=== PATIENT | female | born 1990 | race Caucasian/White ===

== ENCOUNTER 2020-08-04 16:16 | Emergency (ER) | payer MEDICARE, MEDICAID, SELFPAY ==
[2020-08-04 16:35] VITALS: BP 119/89; PULSE 90; RESP 20; TEMP 37; O2SAT 97; BMI 30.9
--- NOTE | 2020-08-04 16:46 | ED.FEMALEGU ---
HPI - Female Genitourinary General Chief complaint: Vaginal Bleeding Stated complaint: Vaginal Bleeding Time Seen by Provider: 08/04/20 16:18 Source: patient Mode of arrival: ambulatory Limitations: no limitations History of Present Illness HPI Narrative: 30-year-old female who presents emergency department for evaluation of vaginal bleeding and vaginal discharge. The patient states that her last menstrual period was 07/27/2020 and lasted 3 days. This was not expected. Her. She states that over the past 4-5 days she has noticed a dark vaginal discharge and bloody discharge. She has been using tissue paper and she soaks through the tissue paper she has not had to use tampons or pads. She states that she is having severe, 10/10, constant, cramping, suprapubic pain which has a sharp component to it as well. She denies frequency, urgency, dysuria, fever, chills, nausea or vomiting. She is sexually active and she states that she has 3 new sexual partners that she has had intercourse with over the past 2 weeks. The patient does not believe she is but has not taken a home test. MD elicited complaint: vaginal bleeding (4-5 days) and vaginal discharge (Dark, malodorous) Location of symptoms: suprapubic (Cramping) Severity: severe Severity scale (1-10): 10 Quality of pain: sharp and other (Cramping) Consistency: constant Vaginal discharge: vaginal odor Vaginal bleeding: moderate Exacerbating factors: none Relieving factors: menstrual period (Last menstrual period 07/27/2020) Associated symptoms: abdominal pain Treatment prior to arrival: none Sexual activity: Yes and New Sexual Partners (Three new sexual partner) Patient : No Possible : unsure if Date of Last Menstrual Period: 07/27/20 Related Data : 3 Para: 3 Home Medications Medication Instructions Recorded Confirmed No Known Home Meds 08/04/20 08/04/20 Allergies Allergy/AdvReac Type Severity Reaction Status Date / Time No Known Allergies Allergy Unverified 05/13/20 15:55 [No Known Allergies*] Review of Systems Review of Systems: Yes all other systems are reviewed and are negative Constitutional: Constitutional: Reports as per HPI Eyes: Eyes: Reports as per HPI ENT: Reports as per HPI Cardiovascular: Cardiovascular: Reports as per HPI Respiratory: Respiratory: Reports as per HPI Gastrointestinal: Gastrointestinal: Reports as per HPI Genitourinary: Genitourinary: Reports as per HPI Musculoskeletal: Musculoskeletal: Reports as per HPI Integumentary/Breasts: Skin/Breast: Reports as per HPI Neurologic: Reports as per HPI and Reports Abnormal speech present Psychiatric: Psychiatric: Reports as per HPI Allergic/Immunologic: Allergic/Immunologic: Reports as per HPI PMFSH Past Medical History [facility] Narrative: The patient does smoke cigarettes. She states that she does drink alcohol and states that she is an alcoholic. She drinks at least 2 beers per day and 1-2 shots per day. She denies drug use. Medical History EtOH dependence : 3 Para: 3 Date of Last Menstrual Period: 07/27/20 Social History Social History Alcohol intake: current Alcohol type: hard liquor Smoked in Last 30 Days: No Use of substances other than those prescribed or required for medical reasons: Unknown Advance Directives: No Advance Directives Information Provided: No Physical Exam Vital Signs: Vital Signs: Last Vital Signs Temp 98.6 F 08/04/20 16:35 Pulse 90 08/04/20 16:35 Resp 20 08/04/20 16:35 BP 119/89 08/04/20 16:35 Pulse Ox 97 08/04/20 16:35 Body Mass Index 30.9 Const: General: cooperative, no acute distress, alert and awake Orientation/consciousness: oriented to person and oriented to place Limitations: no limitations HENMT: Head: Yes normal to inspection, Yes normocephalic and Yes atraumatic Ears: external ears normal General nose exam: Normal external nose present Face and sinus: Yes normal facial exam Mouth: Normal oral and palatal mucosa present Throat: Yes posterior oropharynx normal Eyes: General: appearance normal, both eyes and all related structures Periorbital: periorbital findings normal Eyelids: Yes eyelids normal Conjunctivae: conjunctivae normal Sclerae: sclerae normal Corneas: corneas normal Pupils: Equal, round and reactive pupils present Direct Ophthalmoscopy: normal light reflex Neck: Neck: Yes normal visual inspection and Yes supple Lymphatic: no lymphadenopathy noted Chest: Chest palpation & inspection: normal inspection of the chest and normal palpation of entire chest wall Resp: Effort & Inspection: normal respiratory effort, abnormal respiratory pattern, no audible wheezes and no respiratory distress Auscultation: clear to auscultation bilaterally, no crackles, no rales, no rhonchi and no wheezes Cardio: Rate: regular rate Rhythm: regular rhythm Heart sounds: S1 normal heart sound present, S2 normal heart sound present and no murmurs GI: Inspection: No distended Palpation (GI): Soft to palpation, Tenderness to palpation present (GI) suprapubicly (Moderate), no guarding and No hepatosplenomegaly present Auscultation: normal bowel sounds : General: Yes no CVA tenderness Back/Spine/Pelvis: Back: no CVA tenderness Skin: General skin exam: no rashes or lesions noted Lesions: no lesions Rashes: no rashes Wounds: no wounds Neuro: General: oriented to person and oriented to place Cranial nerves: Yes CN's II-XII intact bilaterally and Yes Equal, round and reactive pupils present Cognition (Neuro): normal cognition Speech: Abnormal speech present Motor exam (neuro): 5/5 motor strength present throughout Extrem: General: Yes normal to inspection, Yes full ROM, Yes no pedal edema and Yes no calf tenderness Psych: Appearance: grossly normal Mental Status: mental status grossly normal Speech and movement: Clear speech present Affect: normal affect Thought process: Normal thought process present Course Course Course Narrative: 30-year-old female who presented to the emergency department for evaluation of vaginal bleeding/discharge who was found to have a positive urine test. The patient's examination did reveal that her cervical os is slightly open with blood coming from the cervix. There was only mild amount of blood in the patient's vagina and cervix and it was swabbed away with 4 large Q-tips. The patient did have some tenderness with palpation over her uterus and adnexa bilaterally. The patient's laboratory evaluation revealed a normal CBC. The patient's blood type is B-positive she does not need RhoGAM. The patient's quantitative beta-hCG was 571. I ordered a pelvic ultrasound to rule out ectopic versus missed AB. 7:20 p.m.: The patient does not want to wait for her ultrasound. I have explained to her multiple times that I am concerned that she is having and that we need to do a ultrasound also to make sure she does not have an ectopic but she wants to leave against medical advice. She is advised to follow-up with her public transit bus driver and return to the emergency department if her symptoms get worse or if she changes her mind and wants to have a complete workup. MDM - Female Genitourinary Lab Data Result diagrams: 08/04/20 17:52 08/04/20 17:52 Labs: Lab Results 08/04/20 08/04/20 08/04/20 Range/Units 17:00 17:52 17:52 WBC (4.8-10.8) X10*3/uL RBC (4.20-5.50) X10*6/uL Hgb (12.0-16.0) g/dl Hct (37-47) % MCV (80-98) fL MCH (27.0-33.0) pg MCHC (31.0-35.0) g/dl RDW (11.0-16.0) % Plt Count (160-400) X10*3/uL MPV (9.4-12.3) fL Immature Gran % (Auto) (0.0-0.4) % Neut % (Auto) (45-73) % Lymph % (Auto) (20-40) % Woodward % (Auto) (2-11) % Eos % (Auto) (0-4) % Baso % (Auto) (0-2) % Lymph # (Auto) (1.2-4.9) X10*3/uL Woodward # (Auto) (0.1-1.2) X10*3/uL Eos # (Auto) (0.0-0.4) X10*3/uL Baso # (Auto) (0.0-0.2) X10*3/uL Abs Immat Gran (auto) (0.00-0.03) X10*3/uL Absolute Neuts (auto) (2.0-8.3) X10*3/uL Absolute Nucleated RBC (0.0-0.012) X10*3/uL Nucleated RBC % (auto) (0.0-0.2) /100WBC Sodium (135-145) mmol/L Potassium (3.3-5.1) mmol/l Chloride (96-108) mmol/L Carbon Dioxide (22-29) mmol/L Anion Gap (12-20) BUN (9-16) mg/dL Creatinine (0.5-1.4) mg/dL Estim Creat Clear Calc Estimated GFR Fasting Glucose (60-99) mg/dL Calcium (8.4-10.2) mg/dL Total Bilirubin (0.0-1.0) mg/dL AST (5-31) U/L ALT (0-31) U/L Alkaline Phosphatase (39-117) U/L Total Protein (6.5-8.0) g/dL Albumin (3.5-5.0) g/dL Beta HCG, Quant 571 mIU/mL Urine Color DARK YELLOW Urine Appearance HAZY Urine pH 6.0 (5.0-8.0) Ur Specific Monroe 1.025 (1.005-1.025) Urine Protein 2+ H (NEG-TRACE) MG/DL Urine Glucose (UA) NEG (NEG) MG/DL Urine Ketones NEG (NEG) MG/DL Urine Blood 3+ H (NEG) Urine Nitrite POS H (NEG) Ur Leukocyte Esterase NEG (NEG) Urine RBC 10-14 H (0) /HPF Urine WBC 0-2 (0-4) /HPF Ur Squamous Epith Cells 1+ /LPF Urine Bacteria TRACE /LPF Urine Mucus 1+ /LPF Urine Test POSITIVE H (NEGATIVE) Blood Type B Positive 08/04/20 08/04/20 Range/Units 17:52 17:52 WBC 3.9 L (4.8-10.8) X10*3/uL RBC 4.11 L (4.20-5.50) X10*6/uL Hgb 12.8 (12.0-16.0) g/dl Hct 37.6 (37-47) % MCV 91.5 (80-98) fL MCH 31.1 (27.0-33.0) pg MCHC 34.0 (31.0-35.0) g/dl RDW 17.8 H (11.0-16.0) % Plt Count 188 (160-400) X10*3/uL MPV 10.2 (9.4-12.3) fL Immature Gran % (Auto) 0.3 (0.0-0.4) % Neut % (Auto) 58.9 (45-73) % Lymph % (Auto) 29.0 (20-40) % Woodward % (Auto) 10.0 (2-11) % Eos % (Auto) 1.3 (0-4) % Baso % (Auto) 0.5 (0-2) % Lymph # (Auto) 1.1 L (1.2-4.9) X10*3/uL Woodward # (Auto) 0.4 (0.1-1.2) X10*3/uL Eos # (Auto) 0.1 (0.0-0.4) X10*3/uL Baso # (Auto) 0.0 (0.0-0.2) X10*3/uL Abs Immat Gran (auto) 0.01 (0.00-0.03) X10*3/uL Absolute Neuts (auto) 2.3 (2.0-8.3) X10*3/uL Absolute Nucleated RBC 0.000 (0.0-0.012) X10*3/uL Nucleated RBC % (auto) 0.0 (0.0-0.2) /100WBC Sodium 141 (135-145) mmol/L Potassium 4.3 (3.3-5.1) mmol/l Chloride 104 (96-108) mmol/L Carbon Dioxide 29 (22-29) mmol/L Anion Gap 12 (12-20) BUN 7 L (9-16) mg/dL Creatinine 0.64 (0.5-1.4) mg/dL Estim Creat Clear Calc 130.4 Estimated GFR > 60 Fasting Glucose 87 (60-99) mg/dL Calcium 8.9 (8.4-10.2) mg/dL Total Bilirubin 0.6 (0.0-1.0) mg/dL AST 283 H (5-31) U/L ALT 165 H (0-31) U/L Alkaline Phosphatase 145 H (39-117) U/L Total Protein 7.2 (6.5-8.0) g/dL Albumin 4.4 (3.5-5.0) g/dL Beta HCG, Quant mIU/mL Urine Color Urine Appearance Urine pH (5.0-8.0) Ur Specific Monroe (1.005-1.025) Urine Protein (NEG-TRACE) MG/DL Urine Glucose (UA) (NEG) MG/DL Urine Ketones (NEG) MG/DL Urine Blood (NEG) Urine Nitrite (NEG) Ur Leukocyte Esterase (NEG) Urine RBC (0) /HPF Urine WBC (0-4) /HPF Ur Squamous Epith Cells /LPF Urine Bacteria /LPF Urine Mucus /LPF Urine Test (NEGATIVE) Blood Type Discharge Plan Discharge Clinical Impression: Threatened Patient Disposition: Home, Self-Care Instructions: Threatened Miscarriage (ED) Additional Instructions: Your urine test is positive Your blood test is positive and you have a quantitative number of 570. This blood test could mean that your early on in the or that you are having a miscarriage. I wanted to get an ultrasound today to see if we can determine what is going on and what is causing her bleeding however you want to leave against medical advice. Follow-up your public transit bus driver for re-evaluation If you change your mind and want to complete the workup or if your symptoms get worse please return to the emergency department. If you do not have a public transit bus driver she can follow up with our public transit bus driver on-call, Dr. Logan. Prescriptions: No Action No Known Home Meds RF: 0 Referrals: Naya Logan MD [Physician] - 2 days
[2020-08-04 17:08] LABS: Glucose Urine UA NEG (NEG); Leukocyte Esterase Urine NEG (NEG); Nitrite Urine POS (NEG); Specific Gravity - Urine 1.025 (1.005-1.025); UPreg QC Valid YES; Urine Blood 3+ (NEG); Urine Ketones NEG (NEG); Urine Pregnancy POSITIVE (NEGATIVE); Urine Protein 2+ MG/DL (NEG-TRACE)
[2020-08-04 17:09] LABS: Appearance Urine HAZY; Color Urine DARK YELLOW
[2020-08-04 17:16] LABS: Bacteria Urine TRACE /LPF; Mucus Urine 1+ /LPF; Squamous Epithelial Cell Urine 1+ /LPF; WBC Urine 0-2 /HPF (0-4)
--- NOTE | 2020-08-04 17:38 | PC.NURSE ---
This RN present w/ MD during pelvic exam, pt tolerated fair.
[2020-08-04 18:00] LABS: MANUAL DIFF FLAG NO
[2020-08-04 18:01] LABS: Basophils Percent Auto 0.5 % (0-2); Eosinophils Absolute Auto 0.1 X10*3/uL (0.0-0.4); Eosinophils Percent Auto 1.3 % (0-4); Hematocrit 37.6 % (37-47); Hemoglobin 12.8 g/dl (12.0-16.0); Imm Gran Abs Auto 0.01 X10*3/uL (0.00-0.03); Imm Gran Pct Auto 0.3 % (0.0-0.4); Lymphocytes Absolute Auto 1.1 X10*3/uL (1.2-4.9); Mean Corpuscular Hemoglobin 31.1 pg (27.0-33.0); Mean Corpuscular Volume 91.5 fL (80-98); Mean Platelet Volume 10.2 fL (9.4-12.3); Monocytes Absolute Auto 0.4 X10*3/uL (0.1-1.2); Neutrophils Absolute Auto 2.3 X10*3/uL (2.0-8.3); Neutrophils Percent Auto 58.9 % (45-73); Platelet Count 188 X10*3/uL (160-400); Red Blood Count 4.11 X10*6/uL (4.20-5.50); Red Cell Distribution Width 17.8 % (11.0-16.0); White Blood Count 3.9 X10*3/uL (4.8-10.8)
[2020-08-04 18:27] LABS: Alanine Aminotransferase 165 U/L (0-31); Albumin Level 4.4 g/dL (3.5-5.0); Alkaline Phosphatase 145 U/L (39-117); Anion Gap 12 (12-20); Aspartate Amino Transferase 283 U/L (5-31); Bilirubin Total 0.6 mg/dL (0.0-1.0); Blood Urea Nitrogen 7 mg/dL (9-16); Calcium 8.9 mg/dL (8.4-10.2); Carbon Dioxide 29 mmol/L (22-29); Chloride 104 mmol/L (96-108); Creatinine Clr Calc Pharmacy 130.4; Estimated Glomerular Filt Rate > 60; Glucose Fasting 87 mg/dL (60-99); Potassium 4.3 mmol/l (3.3-5.1); Sodium 141 mmol/L (135-145); Total Protein 7.2 g/dL (6.5-8.0)
[2020-08-04 18:32] LABS: HCG Quantitative 571 mIU/mL
[2020-08-05 11:09] LABS: BV Int Neg Control Negative (Negative); BV Int Pos Control Positive (Positive)
[2020-09-03 14:46] LABS: CT PCR NOT DETECTED (Not Detect.); NG PCR NOT DETECTED (Not Detect.)
== END 2020-08-04 19:40 | disposition home or self-care (01) ==
PROVIDERS: Emergency Provider Emergency Medicine Emergency Medical Services
DX: O20.0 Threatened abortion (principal); Z3A.00 Weeks of gestation of pregnancy not specified; O99.310 Alcohol use complicating pregnancy, unspecified trimester; F10.20 Alcohol dependence, uncomplicated
CPT/HCPCS: 36415; 80053; 81001; 81025; 84702; 85025; 86900; 86901; 87086; 87480; 87491; 87510; 87591; 87660; 99284

== ENCOUNTER 2022-05-23 14:51 | Emergency (ER) | payer MEDICARE, MEDICAID, SELFPAY ==
--- NOTE | ~2022-05-23 | US_ITS ---
EXAMINATION: US OBSTETRICAL ULTRASOUND CLINICAL INFORMATION: Vaginal bleeding. Positive test. Quantitative beta hCG 3 2 2 mIUper mL COMPARISON: Pelvic ultrasound February 2020 LMP: 03/27/2022 . Gestational age by maternal dates is 8 weeks 1 day. Estimated date of delivery by maternal dates is 01/01/2023. TECHNIQUE: Transabdominal and transvaginal pelvic ultrasound was performed. Transvaginal exam was performed for better visualization of the uterus and ovaries. FINDINGS: The uterus measures 11.1 x 4.4 x 5.9 cm in dimension. No intrauterine is seen. Endometrial thickness measures 1.1 cm. No focal uterine lesion is seen. The ovaries are normal. The right ovary measures 2 x 0.8 x 1.2 cm. The left ovary measures 3.2 x 1.9 x 2.5 cm. There is no fluid in the pelvis. There are prominent left adnexal vessels again questionable for pelvic congestion. US/US OB pelvic and transvaginal IMPRESSION: No intrauterine . Differential would include early intrauterine , missed and ectopic . Correlation with quantitative beta hCG and follow-up OB ultrasound recommended.
[2022-05-23 15:03] VITALS: BP 120/92; PULSE 110; RESP 18; TEMP 36.9; O2SAT 98; BMI 34.3
[2022-05-23 16:03] LABS: MANUAL DIFF FLAG NO
[2022-05-23 16:05] LABS: Basophils Percent Auto 0.5 % (0-2); Eosinophils Absolute Auto 0.1 X10*3/uL (0.0-0.4); Eosinophils Percent Auto 2.4 % (0-4); Hematocrit 40.1 % (37.0-47.0); Hemoglobin 13.5 g/dl (12.0-16.0); Imm Gran Abs Auto 0.01 X10*3/uL (0.00-0.03); Imm Gran Pct Auto 0.2 % (0.0-0.4); Lymphocytes Absolute Auto 1.5 X10*3/uL (1.2-4.9); Lymphocytes Percent Auto 37.3 % (20-40); Mean Corpuscular HGB Conc 33.7 g/dl (31.0-35.0); Mean Corpuscular Hemoglobin 28.9 pg (27.0-33.0); Mean Corpuscular Volume 85.9 fL (80.0-98.0); Mean Platelet Volume 9.6 fL (9.4-12.3); Monocytes Absolute Auto 0.4 X10*3/uL (0.1-1.2); Monocytes Percent Auto 8.8 % (2-11); Neutrophils Absolute Auto 2.1 x10*3/uL (2.0-8.3); Neutrophils Percent Auto 50.8 % (45-73); Platelet Count 212 X10*3/uL (160-400); Red Blood Count 4.67 X10*6/uL (4.20-5.50); Red Cell Distribution Width 17.6 % (11.0-16.0); White Blood Count 4.1 X10*3/uL (4.8-10.8)
[2022-05-23 16:23] LABS: Anion Gap 19 (12-20); Blood Urea Nitrogen 5 mg/dL (9-16); Calcium 9.1 mg/dL (8.4-10.2); Carbon Dioxide 25 mmol/L (22-29); Chloride 103 mmol/L (96-108); Estimated Glomerular Filt Rate > 60; Glucose Random 81 mg/dL (60-115); Potassium 4.1 mmol/L (3.3-5.1); Sodium 143 mmol/L (135-145)
[2022-05-23 16:29] LABS: HCG Quantitative 322 mIU/mL
[2022-05-23 16:35] LABS: Ethanol 285 mg/dL
[2022-05-23] MEDS: LORazepam 1 MG TABLET 2 MG PO (17:10)
--- NOTE | 2022-05-23 17:11 | ED.PREGNANCY ---
HPI - General Chief complaint: Vaginal Bleeding Stated complaint: possible hemorrhage Time Seen by Provider: 05/23/22 15:15 Source: patient and family Mode of arrival: ambulatory Limitations: no limitations History of Present Illness HPI Narrative: 32-year-old female with a past medical history of alcohol dependency who is [id number] with her LMP March 27, 2022 who reports she is currently unsure and has had vaginal bleeding x 6 days c associated suprapubic abdominal pain. She reports she is using approximately 6 pads daily. She reports associated milky fishy odorous abnormal discharge. She also reports that she drank 3 beers prior to arrival and would like something for ?anxiety/withdrawal?. She denies any dizziness, headaches, neck pain/stiffness, chest pain or shortness of breath, dyspnea on exertion, orthopnea, radiation of the abdominal pain, flank pain, back pain, dysuria, hematuria, rashes/lesions, recent travel or sick contacts or any other symptoms complaints or concerns at this time. Reports that she would like to keep this fetus/. MD Complaint: abdominal pain and vaginal bleeding Onset (ago): day(s) (6) Pain Consistency: constant Location: abdomen (Suprapubic abdomen) Severity: mild Quality: Aching Relieving factors: none Exacerbating factors: none Associated symptoms: vaginal bleeding, vaginal discharge and abdominal pain Vaginal discharge: other (White milky fishy smell discharge) Vaginal bleeding: heavy Date of Last Menstrual Period: 03/27/22 Patient : Yes OB History - Previous Pregnancies: miscarriage care: none Related Data : 5 Para: 3 Total number of abortions (spontaneous and elective): 1 Previous Rx's Medication Instructions Recorded nitrofurantoin 100 mg PO BID 7 days #14 caps 05/23/22 monohydrate/macrocrystals 100 mg capsule (Macrobid) Allergies Allergy/AdvReac Type Severity Reaction Status Date / Time No Known Allergies Allergy Unverified 05/13/20 15:55 [No Known Allergies*] Review of Systems Review of Systems: Constitutional : No Fever, No Chills ENT/Mouth : No sore throat, No Rhinorrhea Eyes: No Eye Pain, No Redness Cardiovascular : No Chest Pain, No SOB Respiratory : No Cough, No Sputum, No Wheezing Gastrointestinal : No Nausea, No Vomiting, No Diarrhea, + abdominal pain, Genitourinary : + irregular bleeding, + abnormal vaginal discharge, No Dysuria, No Urinary Frequency, No pelvic pain, no hematuria Musculoskeletal : No Myalgias Skin : No rash Neuro : No Weakness, No Headache Psych : No Anxiety/Panic, No Depression Heme/Lymph: No bruising, No Lymphadenopathy Endocrine : No Polyuria, No Polydipsia Yes all other systems are reviewed and are negative [facility] Past Medical History Attestation statement: The following information was validated with the patient. Source: old records reviewed, obtained from family and nursing notes reviewed Medical History EtOH dependence : 5 Para: 3 Total number of abortions (spontaneous and elective): 1 Date of Last Menstrual Period: 03/27/22 Social History Social History Alcohol intake: current Alcohol type: hard liquor Advance Directives: No Advance Directives Information Provided: No Patient : Yes Physical Exam Vital Signs: Vital Signs: Last Vital Signs Temp 98.4 F 05/23/22 15:03 Pulse 110 H 05/23/22 15:03 Resp 18 05/23/22 15:03 BP 120/92 H 05/23/22 15:03 Pulse Ox 98 05/23/22 15:03 O2 Del Method 05/23/22 15:03 BMI result Body Mass Index 34.3 vital signs have been reviewed as normal and appeared to be correct. Blood pressure 120/92 Heart rate 110. Respiration rate normal. Temperature normal. Oxygen saturation normal. Appearance: Alert. Oriented X3. No acute distress. Head: Normal external exam. Normocephalic. Atraumatic. Eyes: PERRLA. EOMI. Conjunctiva and sclera normal. Eyelids normal. ENT: Pharynx normal. Uvula midline. Moist mucous membranes. Neck: Normal inspection. Neck supple. FROM. No adenopathy. Thyroid Normal. No meningeal signs. No neck mass noted. CVS: Normal heart rate and rhythm. Heart sound normal. No murmurs noted. Pulses normal throughout. Respiratory: No respiratory distress. Painless inspiration. Breath sounds normal. No wheezes/rales/rhonchi noted. Chest nontender. No accessory muscle usage noted or decreased air movement noted. Abdomen: Soft and nontender. Bowel sounds normal in all 4 quadrants. No distention noted. No organomegaly noted. No visible injury noted. : Supervised by RODO Conrad. Normal external appearance of urethra. No lesions/lacerations or discharge or tenderness noted. Speculum exam normal appearance/palpation of vagina normal. No abnormal vaginal discharge noted. Otherwise no vaginal erythema. No foreign bodies noted. Patient noted to have some old dried blood noted to the vaginal full although no active bleeding. No vaginal laceration/lesions noted. No tissue present in vagina. No vaginal mass noted. No vaginal swelling noted. No vaginal tenderness noted. Normal appearance of cervix. Normal palpation of cervix. Cervical os is closed. No abnormal cervical discharge noted. No cervical lesion/mass. No Bartholin cyst noted. No cervical motion tenderness noted. Negative chandelier sign. Normal bimanual exam. Uterine size normal. Bladder normal to palpation. Uterine consistency normal. Normal cervical palpation. Uterine mobility normal. Uterine shape normal. Normal adnexa. Normal rectovaginal exam. Back: No CVA tenderness. Full range of motion noted. Skin: Skin warm and dry. Normal skin color. Normal skin turgor. No rashes/lesions/lacerations noted. Extremities: Extremities exhibit normal range of motion. Extremities nontender. Neuro: Oriented X 3. No motor deficit. No sensory deficit. Reflexes normal. Course Course Course Narrative: 15:50pm - 32-year-old female with a past medical history of alcohol dependency who is [id number] with her LMP March 27, 2022 who reports she is currently unsure and has had vaginal bleeding x 6 days c associated suprapubic abdominal pain. She reports she is using approximately 6 pads daily. She reports associated milky fishy odorous abnormal discharge. She also reports that she drank 3 beers prior to arrival and would like something for ?anxiety/withdrawal?. Plan: Labs, serum quant, UA, UHCG, ethanol level, Rh level, see wall score, Ob pelvic/transvaginal ultrasound. Patient is requesting something for anxiety/withdrawal. I discussed this with Dr. Miguel Angel Chaparro he reports that he is not experience with alcohol withdrawal and he would leave the treatment to us with reminding me benefit versus risk ratio it is titled in favor of withdrawing treatment. Therefore at this time will give Ativan patient understands the benefit versus wrist a taking Ativan and possible demise with taking Ativan and she still wants to take Ativan. Reevaluation(s) Reevaluation #1: - labs reviewed patient with white blood cell count 4000. BUN 5. AST 123. ALT 82. Serum quant 322. Alcohol level 285. - ultrasound revealed no intrauterine . Differential would include early intrauterine , missed and ectopic . Correlate with beta quant and follow-up OB ultrasound recommended. Time: 18:42 Reevaluation #2: - Patient has some old dry blood in the vaginal vault although no active bleeding. No abnormal discharge noted. No foul odor noted. Cervical os is closed. - she is be positive for blood type therefore no RhoGAM indicated. - I discussed this case with Dr. Michelle he reported that the patient needs repeat serum quant in 48 hours with spontaneous /ectopic warnings. Therefore will place the order in the chart and the patient will have to go to the outpatient lab for the serum quant and follow-up with OBGYN as an outpatient basis and return if any new or worsening symptoms. Patient understands agrees with this plan. Time: 19:30 Reevaluation #3: Patient noted to have UTI therefore Macrobid also prescribed. Instructed to return if any new or worsening symptoms and to follow up with Dr. Michelle. Time: 20:48 MDM - OB/Uterine Contractions Medical Records Attestation: I reviewed the patient's medical records. Lab Data Attestation: I reviewed the patient's lab results. Result diagrams: 05/23/22 15:55 05/23/22 15:55 Labs: Lab Results 05/23/22 05/23/22 05/23/22 Range/Units 15:55 15:55 15:55 WBC 4.1 L (4.8-10.8) X10*3/uL RBC 4.67 (4.20-5.50) X10*6/uL Hgb 13.5 (12.0-16.0) g/dl Hct 40.1 (37.0-47.0) % MCV 85.9 (80.0-98.0) fL MCH 28.9 (27.0-33.0) pg MCHC 33.7 (31.0-35.0) g/dl RDW 17.6 H (11.0-16.0) % Plt Count 212 (160-400) X10*3/uL MPV 9.6 (9.4-12.3) fL Immature Gran % (Auto) 0.2 (0.0-0.4) % Neut % (Auto) 50.8 (45-73) % Lymph % (Auto) 37.3 (20-40) % Perry % (Auto) 8.8 (2-11) % Eos % (Auto) 2.4 (0-4) % Baso % (Auto) 0.5 (0-2) % Lymph # (Auto) 1.5 (1.2-4.9) X10*3/uL Perry # (Auto) 0.4 (0.1-1.2) X10*3/uL Eos # (Auto) 0.1 (0.0-0.4) X10*3/uL Baso # (Auto) 0.0 (0.0-0.2) X10*3/uL Abs Immat Gran (auto) 0.01 (0.00-0.03) X10*3/uL Absolute Neuts (auto) 2.1 (2.0-8.3) x10*3/uL Absolute Nucleated RBC 0.000 (0.0-0.012) X10*3/uL Nucleated RBC % (auto) 0.0 (0.0-0.2) /100WBC Sodium 143 (135-145) mmol/L Potassium 4.1 (3.3-5.1) mmol/L Chloride 103 (96-108) mmol/L Carbon Dioxide 25 (22-29) mmol/L Anion Gap 19 (12-20) BUN 5 L (9-16) mg/dL Creatinine 0.65 (0.5-1.4) mg/dL Estim Creat Clear Calc 133.0 Estimated GFR > 60 Random Glucose 81 (60-115) mg/dL Calcium 9.1 (8.4-10.2) mg/dL Total Bilirubin 0.5 (0.0-1.0) mg/dL Direct Bilirubin 0.3 (0.0-0.5) mg/dL AST 123 H (5-31) U/L ALT 82 H (0-31) U/L Alkaline Phosphatase 112 D (39-117) U/L Total Protein 7.5 (6.5-8.0) g/dL Albumin 4.2 (3.5-5.0) g/dL Amylase 39 (28-100) U/L Lipase 57 (8-78) U/L Beta HCG, Quant 322 mIU/mL Urine Color Urine Appearance Urine pH (5.0-9.0) Ur Specific [place] (1.005-1.025) Urine Protein (Neg-Trace) mg/dL Urine Glucose (UA) (Negative) mg/dL Urine Ketones (Negative) mg/dL Urine Blood (Negative) Urine Nitrite (Negative) Ur Leukocyte Esterase (Negative) Urine RBC (0-2) /HPF Urine WBC (0-5) /HPF Ur Squamous Epith Cells (0-2) /HPF Urine Bacteria (None Seen) Hyaline Casts (0-2) /LPF Urine Test (NEGATIVE) Urine Opiates Screen (Not Detect) Urine Fentanyl Screen (Not Detect) Ur Barbiturates Screen (Not Detect) Ur Phencyclidine Scrn (Not Detect) Ur Amphetamines Screen (Not Detect) U Benzodiazepines Scrn (Not Detect) Urine Cocaine Screen (Not Detect) U Marijuana (THC) Screen (Not Detect) Ethyl Alcohol mg/dL Blood Type 05/23/22 05/23/22 05/23/22 Range/Units 16:15 16:15 19:39 WBC (4.8-10.8) X10*3/uL RBC (4.20-5.50) X10*6/uL Hgb (12.0-16.0) g/dl Hct (37.0-47.0) % MCV (80.0-98.0) fL MCH (27.0-33.0) pg MCHC (31.0-35.0) g/dl RDW (11.0-16.0) % Plt Count (160-400) X10*3/uL MPV (9.4-12.3) fL Immature Gran % (Auto) (0.0-0.4) % Neut % (Auto) (45-73) % Lymph % (Auto) (20-40) % Perry % (Auto) (2-11) % Eos % (Auto) (0-4) % Baso % (Auto) (0-2) % Lymph # (Auto) (1.2-4.9) X10*3/uL Perry # (Auto) (0.1-1.2) X10*3/uL Eos # (Auto) (0.0-0.4) X10*3/uL Baso # (Auto) (0.0-0.2) X10*3/uL Abs Immat Gran (auto) (0.00-0.03) X10*3/uL Absolute Neuts (auto) (2.0-8.3) x10*3/uL Absolute Nucleated RBC (0.0-0.012) X10*3/uL Nucleated RBC % (auto) (0.0-0.2) /100WBC Sodium (135-145) mmol/L Potassium (3.3-5.1) mmol/L Chloride (96-108) mmol/L Carbon Dioxide (22-29) mmol/L Anion Gap (12-20) BUN (9-16) mg/dL Creatinine (0.5-1.4) mg/dL Estim Creat Clear Calc Estimated GFR Random Glucose (60-115) mg/dL Calcium (8.4-10.2) mg/dL Total Bilirubin (0.0-1.0) mg/dL Direct Bilirubin (0.0-0.5) mg/dL AST (5-31) U/L ALT (0-31) U/L Alkaline Phosphatase (39-117) U/L Total Protein (6.5-8.0) g/dL Albumin (3.5-5.0) g/dL Amylase (28-100) U/L Lipase (8-78) U/L Beta HCG, Quant mIU/mL Urine Color Yellow Urine Appearance Clear Urine pH 6.0 (5.0-9.0) Ur Specific [place] 1.010 (1.005-1.025) Urine Protein Negative (Neg-Trace) mg/dL Urine Glucose (UA) Negative (Negative) mg/dL Urine Ketones Negative (Negative) mg/dL Urine Blood Moderate (2+) H (Negative) Urine Nitrite Positive H (Negative) Ur Leukocyte Esterase Trace H (Negative) Urine RBC 0-2 (0-2) /HPF Urine WBC 0-5 (0-5) /HPF Ur Squamous Epith Cells 0-2 (0-2) /HPF Urine Bacteria 4+ (None Seen) Hyaline Casts 0-2 (0-2) /LPF Urine Test (NEGATIVE) Urine Opiates Screen (Not Detect) Urine Fentanyl Screen (Not Detect) Ur Barbiturates Screen (Not Detect) Ur Phencyclidine Scrn (Not Detect) Ur Amphetamines Screen (Not Detect) U Benzodiazepines Scrn (Not Detect) Urine Cocaine Screen (Not Detect) U Marijuana (THC) Screen (Not Detect) Ethyl Alcohol 285 mg/dL Blood Type B Positive 05/23/22 05/23/22 Range/Units 19:39 19:39 WBC (4.8-10.8) X10*3/uL RBC (4.20-5.50) X10*6/uL Hgb (12.0-16.0) g/dl Hct (37.0-47.0) % MCV (80.0-98.0) fL MCH (27.0-33.0) pg MCHC (31.0-35.0) g/dl RDW (11.0-16.0) % Plt Count (160-400) X10*3/uL MPV (9.4-12.3) fL Immature Gran % (Auto) (0.0-0.4) % Neut % (Auto) (45-73) % Lymph % (Auto) (20-40) % Perry % (Auto) (2-11) % Eos % (Auto) (0-4) % Baso % (Auto) (0-2) % Lymph # (Auto) (1.2-4.9) X10*3/uL Perry # (Auto) (0.1-1.2) X10*3/uL Eos # (Auto) (0.0-0.4) X10*3/uL Baso # (Auto) (0.0-0.2) X10*3/uL Abs Immat Gran (auto) (0.00-0.03) X10*3/uL Absolute Neuts (auto) (2.0-8.3) x10*3/uL Absolute Nucleated RBC (0.0-0.012) X10*3/uL Nucleated RBC % (auto) (0.0-0.2) /100WBC Sodium (135-145) mmol/L Potassium (3.3-5.1) mmol/L Chloride (96-108) mmol/L Carbon Dioxide (22-29) mmol/L Anion Gap (12-20) BUN (9-16) mg/dL Creatinine (0.5-1.4) mg/dL Estim Creat Clear Calc Estimated GFR Random Glucose (60-115) mg/dL Calcium (8.4-10.2) mg/dL Total Bilirubin (0.0-1.0) mg/dL Direct Bilirubin (0.0-0.5) mg/dL AST (5-31) U/L ALT (0-31) U/L Alkaline Phosphatase (39-117) U/L Total Protein (6.5-8.0) g/dL Albumin (3.5-5.0) g/dL Amylase (28-100) U/L Lipase (8-78) U/L Beta HCG, Quant mIU/mL Urine Color Urine Appearance Urine pH (5.0-9.0) Ur Specific [place] (1.005-1.025) Urine Protein (Neg-Trace) mg/dL Urine Glucose (UA) (Negative) mg/dL Urine Ketones (Negative) mg/dL Urine Blood (Negative) Urine Nitrite (Negative) Ur Leukocyte Esterase (Negative) Urine RBC (0-2) /HPF Urine WBC (0-5) /HPF Ur Squamous Epith Cells (0-2) /HPF Urine Bacteria (None Seen) Hyaline Casts (0-2) /LPF Urine Test POSITIVE H (NEGATIVE) Urine Opiates Screen Not Detected (Not Detect) Urine Fentanyl Screen Not Detected (Not Detect) Ur Barbiturates Screen Not Detected (Not Detect) Ur Phencyclidine Scrn Not Detected (Not Detect) Ur Amphetamines Screen Not Detected (Not Detect) U Benzodiazepines Scrn Not Detected (Not Detect) Urine Cocaine Screen Not Detected (Not Detect) U Marijuana (THC) Screen Not Detected (Not Detect) Ethyl Alcohol mg/dL Blood Type Imaging Data Transvaginal/pelvic ultrasound: Attestation: I personally reviewed and interpreted this imaging study as follows: Radiologist's impression: FINDINGS: The uterus measures 11.1 x 4.4 x 5.9 cm in dimension. No intrauterine is seen. Endometrial thickness measures 1.1 cm. No focal uterine lesion is seen. The ovaries are normal. The right ovary measures 2 x 0.8 x 1.2 cm. The left ovary measures 3.2 x 1.9 x 2.5 cm. There is no fluid in the pelvis. There are prominent left adnexal vessels again questionable for pelvic congestion. US/US OB pelvic and transvaginal IMPRESSION: No intrauterine . Differential would include early intrauterine , missed and ectopic . Correlation with quantitative beta hCG and follow-up OB ultrasound recommended. Critical Care Time Critical Care Time Critical Care Time: Yes Total Critical Care Time: 60 Attestation: I personally attest to this time spent taking care of the patient Discharge Plan Discharge Clinical Impression: Positive test, Threatened , Vaginal bleeding, Alcohol intoxication, UTI (urinary tract infection) Patient Disposition: Home, Self-Care Instructions: Threatened Miscarriage (ED), (ED), Alcohol Intoxication (ED) Additional Instructions: You have pending lab results if any are positive you will be contacted. We are unable to rule out an ectopic therefore you will need to return in 48 hours for repeat blood work you will return to the outpatient lab not the emergency department. I placed an order in the computer therefore you can come any time on 05/25/2022 to the outpatient lab in the main hospital for repeat serum quant. This is very important as this could possibly be an ectopic and we cannot rule this out at this time. Return if any new or worsening symptoms specially if he develops any fevers, worsening abdominal pain or worsening vaginal bleeding or any other symptoms related to this. You should follow-up with her primary care provider. You should also think about detox for alcohol. Prescriptions: New nitrofurantoin monohyd/m-cryst [Macrobid] 100 mg capsule 100 mg PO BID 7 Days Qty: 14 0RF Rx Instructions: must administer with a meal/food Referrals: Dirk Michelle MD [Physician] - (Call this week to make a follow-up appointment) Interventions: ED Discharge Assessment Last Done: 05/23/22 20:16 Discharge Date/Time: 05/23/22 20:17
[2022-05-23 17:35] LABS: Alanine Aminotransferase 82 U/L (0-31); Albumin Level 4.2 g/dL (3.5-5.0); Alkaline Phosphatase 112 U/L (39-117); Amylase 39 U/L (28-100); Aspartate Amino Transferase 123 U/L (5-31); Bilirubin Direct 0.3 mg/dL (0.0-0.5); Bilirubin Total 0.5 mg/dL (0.0-1.0); Lipase 57 U/L (8-78); Total Protein 7.5 g/dL (6.5-8.0)
--- NOTE | 2022-05-23 19:35 | PM.GYNCN ---
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 LMP March 27, 2022 The patient states that she drank 3 beers prior to arrival and would like something for ?anxiety/withdrawal?.? 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 Systems Review of Systems ROS Unobtainable: All systems reviewed & are unremarkable except as noted in HPI and below Cardiovascular: Denies Palpatations, Loss of consciousness or Chest pain Respiratory: Denies Cough, Wheezing or Shortness of breath Musculoskeletal: Denies Low back pain Gastrointestinal: Denies Heartburn, Constipation, Diarrhea, Nausea or Vomiting Genitourinary: Denies Pain with urination, Burning with urination or Urinary frequency Neurological: Denies Migranes Psychological: Denies Depression OB PMFSH Past Medical History Medical History EtOH dependence Social History Social History Alcohol intake: current Alcohol type: hard liquor Advance Directives: No Advance Directives Information Provided: No Patient : Yes Meds Allergies Allergy/AdvReac Type Severity Reaction Status Date / Time No Known Allergies Allergy Unverified 05/13/20 15:55 [No Known Allergies*] [employer]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 Vital signs: Temp Pulse Resp BP Pulse Ox O2 Del Method 98.4 F 110 H 18 120/92 H 98 05/23/22 15:03 05/23/22 15:03 05/23/22 15:03 05/23/22 15:03 05/23/22 15:03 05/23/22 15:03 BMI result Body Mass Index 34.3 Constitutional General Appearance: Healthy appearing, Well-nourished and Well-developed Psychiatric Mood and Affect: active and alert, normal mood and normal affect Skin Appearance: No rashes and No lesions Lungs Respiratory Effort: No intercostal retractions Auscultation: Clear to auscultation Cardiovascular Auscultation: RRR Abdomen Auscultation/Inspection/Palpation: Normal bowel sounds, Soft, Non-distended and No tenderness Additional Comments: Physical exam reported by JESUS Valdez Abdomen: Soft and nontender. Bowel sounds normal in all 4 quadrants. No distention noted.? No organomegaly noted.? :? 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 Labs CBC & Chem 7: 05/23/22 15:55 05/23/22 15:55 Labs: Short CBC 05/23/22 Range/Units 15:55 WBC 4.1 L (4.8-10.8) X10*3/uL Hgb 13.5 (12.0-16.0) g/dl Hct 40.1 (37.0-47.0) % Plt Count 212 (160-400) X10*3/uL BMP 05/23/22 15:55 Sodium 143 Potassium 4.1 Chloride 103 Carbon Dioxide 25 BUN 5 L Creatinine 0.65 Calcium 9.1 Liver Function 05/23/22 Range/Units 15:55 Total Bilirubin 0.5 (0.0-1.0) mg/dL Direct Bilirubin 0.3 (0.0-0.5) mg/dL AST 123 H (5-31) U/L ALT 82 H (0-31) U/L Alkaline Phosphatase 112 D (39-117) U/L Albumin 4.2 (3.5-5.0) g/dL Imaging US - abdomen: Radiologist's impression: ITS Impressions Pelvic/Transvag US 05/23/22 17:26 IMPRESSION: No intrauterine . Differential would include early intrauterine , missed and ectopic . Correlation with quantitative beta hCG and follow-up OB ultrasound recommended. Assessment and Plan (1) First trimester bleeding: Status: Acute Recommended to JESUS Valdez in the emergency the following: Differential diagnosis includes threatened A/B, normal intrauterine or ectopic . HCG in 48 hours with a follow-up apt in the office. SAB and ectopic warnings to be given to the patient, she is to come back to emergency room in case of vaginal bleeding and or pelvic pain. Counseling given to the patient to avoid alcohol since it is teratogenic in . I spent a total of 20 minutes reviewing the chart, talking to the patient Plan Will defer alcohol withdrawal/withdrawal would management to the emergency room team
[2022-05-23 19:52] LABS: Appearance Urine Clear; Color Urine Yellow; Glucose Urine UA Negative (Negative); Leukocyte Esterase Urine Trace (Negative); Nitrite Urine Positive (Negative); UMIC TRIGGER UACC YES; Urine Blood Moderate (2+) (Negative); Urine Ketones Negative (Negative); Urine Protein Negative (Neg-Trace)
[2022-05-23 19:53] LABS: UPreg QC Valid YES; Urine Pregnancy POSITIVE (NEGATIVE)
--- NOTE | 2022-05-23 19:58 | MHC.CARE ---
Care Team received a consult - is and intoxication ? detox. Care Team met with pt and she refused detox services. She stated she does not have a drinking problem as she only drank a lot today.
[2022-05-23 20:02] LABS: Bacteria Urine 4+ (None Seen); Hyaline Casts Urine 0-2 /LPF (0-2); RBC Urine 0-2 /HPF (0-2); Squamous Epithelial Cell Urine 0-2 /HPF (0-2); UACC Culture Trigger YES; WBC Urine 0-5 /HPF (0-5)
[2022-05-23 20:06] LABS: Amphetamine Screen Urine Not Detected (Not Detect); Barbiturates, Urine Not Detected (Not Detect); Benzodiazepines Screen Urine Not Detected (Not Detect); Cannabinoid Screen Urine Not Detected (Not Detect); Cocaine Screen Urine Not Detected (Not Detect); Fentanyl, urine Not Detected (Not Detect); Opiate Screen Urine Not Detected (Not Detect); Phencyclidine Screen Urine Not Detected (Not Detect)
[2022-05-24 05:52] LABS: CT PCR NOT DETECTED (Not Detect.); NG PCR NOT DETECTED (Not Detect.)
[2022-05-24 10:14] LABS: BV Int Neg Control Negative (Negative); BV Int Pos Control Positive (Positive)
== END 2022-05-23 20:17 | disposition home or self-care (01) ==
PROVIDERS: Physician Assistant Medical; Emergency Provider Emergency Medicine
DX: O20.9 Hemorrhage in early pregnancy, unspecified (principal); O20.0 Threatened abortion; N39.0 Urinary tract infection, site not specified; F10.129 Alcohol abuse with intoxication, unspecified; Y90.8 Blood alcohol level of 240 mg/100 ml or more; Z20.822 Contact with and (suspected) exposure to COVID-19; Z79.899 Other long term (current) drug therapy
CPT/HCPCS: 36415; 76801; 76817; 80048; 80076; 80307; 81001; 81025; 82077; 82150; 83690; 84702; 85025; 86900; 86901; 87086; 87088; 87186; 87480; 87491; 87510; 87591; 87660; 99282; 99283

== ENCOUNTER 2022-06-02 02:24 | Inpatient (IN) | payer MEDICARE, MEDICAID, SELFPAY ==
--- OUTSIDE RECORDS SUMMARY | 2022-06-02 02:28 | XMS_ITS | Continuity of Care Document ---
:1990 Author Organization [facility] Address [address] [place] [address]- Care Team Providers Name Role Phone Not on Staff, PCP Primary Care Physician Unavailable [facility] - 05/05/20 [facility] [address] [place] [id number] [facility] Discharge Disposition: A-D/C Walkout Attending Physician: Not on Staff, Attending MD Admitting Physician: Not on Staff, Admitting MD Referring Physician: Not on Staff, Referring MD Allergies, Adverse Reactions, Alerts Substance Reaction Severity Status NKA Active Immunizations Given and Recorded Vaccine Date Status Refusal Reason pneumococcal 23-valent vaccine 07/08/15 Given tetanus/diphtheria/pertussis, acel(Tdap) 05/22/14 Given influenza virus vaccine, inactivated 05/15/14 Given Not Given Vaccine Date Status Refusal Reason pneumococcal 23-valent vaccine 07/06/15 Not Given P arent Or Guardian Refuses influenza virus vaccine, inactivated 06/15/15 Not Given Patient Refuses Medications CeleXA 20 mg oral tablet 10 mg, 0.5, tablet, By Mouth, Daily, # 15 tablet, Refills 0, Tot. Refills 0, Maintenance, 04/28/20 9:48:00 EDT, Route to Pharmacy Electronically, [facility]/pharmacy #[id number], 162, cm, 04/27/20 23:16:00 EDT, Height, 82, kg, 04/21/20 16:02:00 EDT, Dry Weight Start Date: 04/28/20 Status: OrderedchlorproMAZINE 50 mg oral tablet = 50 mg, By Mouth, Every 6 hours, PRN Agitation, # 60 tablet, 0 Refills, Maintenance, 04/28/20 9:48:00 EDT, Tablet, [facility]/pharmacy #[id number], 162, cm, 04/27/20 23:16:00 EDT, Height, 82, kg, 04/21/20 16:02:00EDT, Dry Weight Start Date: 04/28/20 Status: OrderedcloNIDine 0.1 mg oral tablet 0.1 mg, 1, tablet, By Mouth, 3 times a day, PRN, # 60 tablet, Refills 1, Tot. Refills 1, Maintenance, Anxiety Agitation, 11/19/19 8:38:00 EDT, Print Requisition Start Date: 11/19/19 Stop Date: 01/18/20 Status: Orderedmultivitamin Multiple Vitamins oral tablet 1 tablet, By Mouth, Daily, # 30 tablet, 1 Refills, Maintenance, 11/19/19 8:39:00 EDT, Tablet Start Date: 11/19/19 Stop Date: 01/18/20 Status: Orderedomeprazole 20 mg oral delayed release tablet 1 tablet = 20 mg, By Mouth, 2 times a day, # 30 tablet, 0 Refills, Maintenance, 04/21/20 16:28:00 EDT, EC Tablet Start Date: 04/21/20 Status: OrderedtraZODone 100 mg oral tablet 100 mg, 1, tablet, By Mouth, Daily at bedtime, # 14 tablet, Refills 1, Tot. Refills 1, Maintenance, 01/28/20 11:40:00 EDT, Route to Pharmacy Electronically, [facility]/pharmacy #[id number], 161, cm, 11/19/19 7:59:00 EDT, Height, 77, kg, 11/13/19 17:52:00 EDT, Dry... Start Date: 01/28/20 Stop Date: 02/25/20 Status: OrderedVistaril pamoate 50 mg oral capsule 1 capsule = 50 mg, By Mouth, 2 times a day, PRN for anxiety, 0 Refills, Maintenance, 04/21/20 16:28:00 EDT, Capsule Start Date: 04/21/20 Status: Ordered Problem List Condition Effective Dates Status Health Status Informant Alcohol dependence(Confirmed) Active SANAZ II without treatment(Confirmed) 2008 Active Depression, major(Confirmed) Active Posttraumatic stress Active disorder(Confirmed) Vital Signs Most recent to oldest [Reference Range]: 1 2 Weight 90.1 kg (05/05/20 10:50 AM) Oxygen Saturation [94-100 %] 97 % 99 % (05/05/20 10:50 AM) (05/05/20 10:45 AM) Pulse Rate [55-90 bpm] 73 bpm 78 bpm (05/05/20 10:50 AM) (05/05/20 10:45 AM) Blood Pressure [90-138/55-84 mm Hg] 128/80 mm Hg (05/05/20 10:50 AM) Respiratory Rate [16-30 br/min] 16 br/min (05/05/20 10:50 AM) Temperature [96.8-100.4 DegF] 97.6 DegF (05/05/20 10:50 AM) Mode of Delivery (Oxygen) Room air (05/05/20 10:45 AM) Blood pressure sites Arm, left (05/05/20 10:50 AM) Dry Weight 90.1 kg (05/05/20 10:50 AM) Weight Obtained Via Standing scale (05/05/20 10:50 AM) Dry Weight Obtained Via Standing scale (05/05/20 10:50 AM) Social History Social History Type Response Smoking Status Current every day smoker entered on: 08/27/16 Sex Female
--- OUTSIDE RECORDS SUMMARY | 2022-06-02 02:28 | XMS_ITS | Continuity of Care Document ---
:1990 Author Organization [facility] Address [address] [place] [address]- Care Team Providers Name Role Phone Not on Staff, PCP Primary Care Physician Unavailable [facility] Date[facility]): [facility]19 - 11/07/[address] [address]- [facility] Discharge Disposition: A-D/C Home Attending Physician: Bianca ISAAC, Patrick Hutchinson Admitting Physician: Patrick Valenzuela MD Referring Physician: Not on Staff, Referring [...] inactivated 06/15/15 Not Given Patient Refuses Medications cephalexin monohydrate 500 mg oral capsule 1 capsule = 500 mg, By Mouth, 4 times a day, for 7 days, # 28 capsule, 0 Refills, Acute 11/14/19 0:14:00 EDT, 11/07/19 0:14:00 EDT, Capsule, [facility], 161.5, cm, 12/07/17 8:39:00 EDT, Height, 77.5, kg, 03/01/19 21:54:00 EDT, Dry Weight Start Date: 11/07/19 Stop Date: 11/14/19 Status: OrderedchlordiazePOXIDE 10 mg oral capsule See Instructions, Take 3 capsules today, followed by 2 capsules on day 2( in AM and at bedtime ), followed by 1 capsule at bedtime on day 3 and day 4 and then stop, # 7 capsule, 0 Refills, Maintenance,12/07/17 8:43:31 EDT Start Date: 12/07/17 Status: Orderedfolic acid 1 mg oral tablet 1 mg, By Mouth, Daily, # 30 tablet, Refills 0, Tot. Refills 0, Maintenance, 12/07/17 8:42:06 EDT, Print Requisition Start Date: 12/07/17 Status: OrderedhydrOXYzine pamoate 50 mg oral capsule = 50 mg, By Mouth, 3 times a day, PRN as needed for anxiety, # 45 tablet, 1 Refills, Maintenance, 12/07/17 8:46:05 EDT, Capsule Start Date: 12/07/17 Status: OrderedLexapro 10 mg oral tablet = 10 mg, By Mouth, Daily, for mood and anxiety, # 30 tablet, 1 Refills, Maintenance, 12/07/17 8:45:45 EDT, Tablet Start Date: 12/07/17 Status: Orderedthiamine 100 mg oral tablet 100 mg, By Mouth, Daily, # 30 tablet, Refills 1, Tot. Refills 1, Maintenance, 12/07/17 8:42:24 EDT, Print Requisition Start Date: 12/07/17 Status: OrderedtraZODone 50 mg oral tablet 50 mg, By Mouth, Daily at bedtime, PRN, take 1 tablet as needed at bedtime for sleep, # 15 tablet, Refills 1, Tot. Refills 1, Maintenance, Sleep, 12/07/17 8:42:45 EDT, Print Requisition Start Date: 12/07/17 Status: OrderedZantac 150 oral tablet 1 tablet = 150 mg, By Mouth, 2 times a day, # 60 tablet, 0 Refills, Maintenance, 01/22/18 7:00:32 EDT, Tablet Start Date: 01/22/18 Status: Ordered Problem List Condition Effective Dates Status Health Status Informant Alcohol dependence(Confirmed) Active SANAZ II without treatment(Confirmed) 2009 Active Depression, major(Confirmed) Active Posttraumatic stress Active disorder(Confirmed) Vital Signs Most recent to oldest [Reference Range]: 1 Oxygen Saturation [94-100 %] 97 % (11/06/19 8:11 PM) Pulse Rate [55-90 bpm] 119 bpm *H* (11/06/19 8:11 PM) Blood Pressure [90-138/55-84 mm Hg] 140/92 mm Hg *H* (11/06/19 8:11 PM) Respiratory Rate [16-30 br/min] 20 br/min (11/06/19 8:11 PM) Temperature [96.8-100.4 DegF] 98.3 DegF (11/06/19 8:11 PM) Mode of Delivery (Oxygen) Room air (11/06/19 8:11 PM) Temperature Route Oral (11/06/19 8:11 PM) Social History Social History Type Response Smoking Status Current every day smoker entered on: 08/27/16 Sex Female
--- OUTSIDE RECORDS SUMMARY | 2022-06-02 02:28 | XMS_ITS | Continuity of Care Document ---
:1990 Author Organization [facility] Address [address] [place] [id number]- Care Team Providers Name Role Phone Not on Staff, PCP Primary Care Physician Unavailable Encounter [facility] Date(s): 04/05/21 - 04/05/[address] [address]- Encounter Diagnosis Alcohol use (Final) - 04/05/21 Discharge Disposition: A-D/C Home Attending Physician: Madhu Kennedy MD Admitting Physician: Madhu Kennedy MD Referring Physician: Not on Staff, Referring [...] 04/28/20 9:48:00 EDT, Route to Pharmacy Electronically, [facility]/pharmacy #[id number], 162, cm, 04/27/20 23:16:00 EDT, Height, 82, kg, 04/21/20 16:02:00 EDT, Dry Weight Start Date: 04/28/20 Status: OrderedchlorproMAZINE 50 mg oral tablet = 50 mg, By Mouth, Every 6 hours, PRN Agitation, # 60 tablet, 0 Refills, Maintenance, 04/28/20 9:48:00 EDT, Tablet, [facility]/pharmacy #[id number], 162, cm, 04/27/20 23:16:00 EDT, Height, [...] EDT, EC Tablet Start Date: 04/21/20 Status: OrderedPrenatal AD oral tablet 1 tablet, By Mouth, Daily, # 90 tablet, 5 Refills, Maintenance, 08/04/20 23:54:00 EST, Tablet, [facility]/pharmacy #[id number], Partial fill upon patient request if the prescription is for a schedule II opioid drug., 1 tablet By Mouth Daily, 162, cm, 04/28/20 10:0... Start Date: 08/04/20 Status: OrderedtraZODone 100 mg oral tablet 100 mg, 1, tablet, By Mouth, Daily at bedtime, # 14 tablet, Refills 1, Tot. Refills 1, Maintenance, 01/28/20 11:40:00 EDT, Route to Pharmacy Electronically, [facility]/pharmacy #[id number], 161, cm, 11/19/19 7:59:00 EDT, Height, 77, [...] disorder(Confirmed) Vital Signs Most recent to oldest 1 2 3 [Reference Range]: Oxygen Saturation [94-100 %] 97 % 100 % 100 % (04/05/21 5:11 PM) (04/05/21 2:04 PM) (04/05/21 10: 53 AM) Pulse Rate [55-90 bpm] 88 bpm 88 bpm 93 bpm (04/05/21 5:11 PM) (04/05/21 2:04 PM) *H* (04/05/21 10:53 A M) Blood Pressure [90-138/55-84 99/65 mm Hg 101/61 mm Hg 94/ 56 mm Hg mm Hg] (04/05/21 2:04 PM) (04/05/21 10:53 AM) (04/05/21 7: 54 AM) Respiratory Rate [16-30 14 br/min 14 br/min 12 br/mi n br/min] *L* *L* *L* (04/05/21 2:04 PM) (04/05/21 10:53 AM) (04/05/21 7: 54 AM) Temperature [96.8-100.4 98.8 DegF 97.4 DegF 98 DegF DegF] (04/05/21 10:53 AM) (04/05/21 7:53 AM) (04/05/21 5: 34 AM) Liters per Minute 2 L/min 2 L/min 2 L/min (04/05/21 2:04 PM) (04/05/21 10:53 AM) (04/05/21 7: 53 AM) Mode of Delivery (Oxygen) Room air Nasal cannula Nasal cannula (04/05/21 5:11 PM) (04/05/21 2:04 PM) (04/05/21 10: 53 AM) Blood pressure sites Arm, right Arm, right Arm, left (04/05/21 2:04 PM) (04/05/21 10:53 AM) (04/05/21 7: 53 AM) Temperature Route Oral Oral Oral (04/05/21 10:53 AM) (04/05/21 7:53 AM) (04/05/21 5: 34 AM) Social History Social History Type Response Smoking Status Current every day smoker entered on: 08/27/16 Sex
--- OUTSIDE RECORDS SUMMARY | 2022-06-02 02:28 | XMS_ITS | Continuity of Care Document ---
:1990 Author Organization [facility] Address [address] [place] [address]- Care Team Providers Name Role Phone Not on Staff, PCP Primary Care Physician Unavailable [place] [facility] [place]/23[place]22 - 05/23/[address] [address]- Discharge Disposition: A-D/C Walkout Attending Physician: Not on Staff, Attending MD Admitting Physician: Not on Staff, Admitting MD Referring Physician: Not on Staff, Referring MD Allergies, Adverse Reactions, Alerts No Known Allergies Immunizations Given and Recorded Vaccine Date Status Refusal Reason pneumococcal 23-valent vaccine 07/08/15 Given tetanus/diphtheria/pertussis, acel(Tdap) 05/22/14 Given influenza virus vaccine, inactivated 05/15/14 Given Not Given Vaccine Date Status Refusal Reason pneumococcal 23-valent vaccine 07/06/15 Not Given P arent Or Guardian Refuses influenza virus vaccine, inactivated 06/15/15 Not Given Patient Refuses Medications busPIRone 10 mg oral tablet 10 mg, 1, tablet, By Mouth, 3 times a day, # 270 tablet, Refills 0, Maintenance, 12/29/21 13:39:00 EDT, Partial fill upon patient request if the prescription is for a schedule II opioid drug. Start Date: 12/29/21 Status: OrderedchlorproMAZINE 50 mg oral tablet = 50 mg, By Mouth, Every 6 hours, PRN Agitation, # 60 tablet, 0 Refills, Maintenance, 04/28/20 9:48:00 EDT, Tablet, [facility]/pharmacy #[id number], 162, cm, 04/27/20 23:16:00 EDT, Height, 82, kg, 04/21/20 16:02:00EDT, Dry Weight Start Date: 04/28/20 Status: OrderedcloNIDine 0.1 mg oral tablet 0.1 mg, 1, tablet, By Mouth, 3 times a day, PRN, # 60 tablet, Refills 1, Tot. Refills 1, Maintenance, Anxiety Agitation, 11/19/19 8:38:00 EDT, Print Requisition Start Date: 11/19/19 Stop Date: 01/18/20 Status: OrderedDepakote 500 mg oral enteric coated tablet 1 tablet = 500 mg, By Mouth, 3 times a day, 0 Refills, Maintenance, 12/29/21 13:24:00 EDT, Partial fill upon patient request if the prescription is for a schedule II opioid drug. Start Date: 12/29/21 Status: OrderedEucerin Eczema Relief topical cream Topically, 0 Refills, Maintenance, 12/29/21 13:40:00 EDT, Partial fill upon patient request if the prescription is for a schedule II opioid drug. Start Date: 12/29/21 Status: OrderedFLUoxetine 20 mg oral capsule 20 mg, 1, capsule, By Mouth, Daily, Refills 0, Maintenance, 12/29/21 13:39:00 EDT, Partial fill uponpatient request if the prescription is for a schedule II opioid drug. Start Date: 12/29/21 Status: OrderedMetamucil 3.4 gm/5.2 gm oral powder for reconstitution = 3.4 Gm, By Mouth, Daily, 0 Refills, Maintenance, 12/29/21 13:42:00 EDT, Partial fill upon patient request if the prescription is for a schedule II opioid drug. Start Date: 12/29/21 Status: Orderedprazosin 2 mg oral capsule 1 capsule = 2 mg, By Mouth, 3 times a day, 0 Refills, Maintenance, 12/29/21 13:38:00 EDT, Partial fill upon patient request if the prescription is for a schedule II opioid drug. Start Date: 12/29/21 Status: OrderedQUEtiapine 300 mg oral tablet 1 tablet = 300 mg, By Mouth, Daily at bedtime, # 30 tablet, 0 Refills, Maintenance, 12/29/21 13:38:00 EDT, Tablet, Partial fill upon patient request if the prescription is for a schedule II opioid drug. Start Date: 12/29/21 Status: OrderedQUEtiapine 50 mg oral tablet 1 tablet = 50 mg, By Mouth, 2 times a day, 0 Refills, Maintenance, 12/29/21 13:37:00 EDT, Partial fill upon patient request if the prescription is for a schedule II opioid drug. Start Date: 12/29/21 Status: OrderedSenna 8.6 mg oral tablet 17.2 mg, 2, tablet, By Mouth, Daily at bedtime, PRN, # 100 tablet, Refills 0, Maintenance, for constipation, 12/29/21 13:41:00 EDT, Tablet, Partial fill upon patient request if the prescription is for a schedule II opioid drug. 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
--- OUTSIDE RECORDS SUMMARY | 2022-06-02 02:28 | XMS_ITS | Continuity of Care Document ---
:1990 [facility] Address [address] [place] [id number]- Care Team Providers Name Role Phone Not on Staff, PCP Primary Care Physician Unavailable [facility]): 12/29/21 - 02/02/22 [facility] [address] [address] Attending Physician: Bereket ISAAC, Humphrey Infante Referring Physician: Janey Keenan CNM Allergies, Adverse Reactions, Alerts No Known Allergies [...] 0 Refills, Maintenance, 04/28/20 9:48:00 EDT, Tablet, [facility]acy #[id number], 162, cm, 04/27/20 23:16:00 EDT, Height, [...] Depression, major(Confirmed) Active Posttraumatic stress Active disorder(Confirmed) Social History Social History Type Response Smoking Status Former smoker, quit more young n 30 days ago entered on: 12/29/21 Sex
--- OUTSIDE RECORDS SUMMARY | 2022-06-02 02:28 | XMS_ITS | Continuity of Care Document ---
:1990 Author Organization [facility] Address [address] [place] [address]- Care Team Providers Name Role Phone Not on Staff, PCP Primary Care Physician Unavailable [facility] Date[facility]s): 02/05/20 - 02/06/[address] [address]- [facility] Encounter Diagnosis Depression (Final) - 02/05/20 Discharge Disposition: A-D/C Home Attending Physician: Maia Guerrero MD Admitting Physician: Maia Guerrero MD Referring Physician: Not on Staff, Referring [...] inactivated 06/15/15 Not Given Patient Refuses Medications chlorproMAZINE 50 mg oral tablet 1 tablet = 50 mg, By Mouth, 3 times a day, PRN Agitation, # 90 tablet, 1 Refills, Maintenance, 11/19/19 8:37:00 EDT, Tablet Start Date: 11/19/19 Stop Date: 01/18/20 Status: OrderedcloNIDine 0.1 mg oral tablet 0.1 mg, 1, tablet, By Mouth, 3 times a day, PRN, # 60 tablet, Refills 1, Tot. Refills 1, Maintenance, Anxiety Agitation, 11/19/19 8:38:00 EDT, Print Requisition Start Date: 11/19/19 Stop Date: 01/18/20 Status: Orderedfamotidine 20 mg oral tablet 20 mg, 1, tablet, By Mouth, 2 times a day, # 60 tablet, Refills 1, Tot. Refills 1, Maintenance, 11/19/19 8:38:00 EDT, Print Requisition Start Date: 11/19/19 Status: Orderedfolic acid 1 mg oral tablet 1 mg, 1, tablet, By Mouth, Daily, # 30 tablet, Refills 1, Tot. Refills 1, Maintenance, 11/19/19 8:38:00 EDT, Print Requisition Start Date: 11/19/19 Status: OrderedLexapro 10 mg oral tablet 1 tablet = 10 mg, By Mouth, Daily, # 30 tablet, 1 Refills, Maintenance, 11/19/19 8:38:00 EDT, Tablet Start Date: 11/19/19 Status: Orderedmultivitamin Multiple Vitamins oral tablet 1 tablet, By Mouth, Daily, # 30 tablet, 1 Refills, Maintenance, 11/19/19 8:39:00 EDT, Tablet Start Date: 11/19/19 Stop Date: 01/18/20 Status: Orderednaltrexone 50 mg oral tablet 1 tablet = 50 mg, By Mouth, Daily, # 30 tablet, 0 Refills, Acute 02/25/20 8:00:00 EDT, 01/28/20 11:41:00 EDT, Tablet, [facility]/pharmacy #[id number], 161, cm, 11/19/19 7:59:00 EDT, Height, 77, kg, 11/13/19 17:52:00 EDT, Dry Weight Start Date: 01/28/20 Stop Date: 02/25/20 Status: Orderedpermethrin 5% topical cream 1 application, Topically, Once, # 60 Gm, 0 Refills, Soft Stop, 01/30/20 5:04:00 EDT, Cream, [facility]/pharmacy #[id number], 1 application Topically Once, 161, cm, 11/19/19 7:59:00 EDT, Height, 77, kg, 11/13/19 17:52:00 EDT, Dry Weight Start Date: 01/30/20 Status: Orderedthioridazine 25 mg oral tablet 1 tablet = 25 mg, By Mouth, 3 times a day, # 42 tablet, 1 Refills, Maintenance, 01/28/20 11:41:00 EDT, Tablet, [facility]/pharmacy #[id number], 161, cm, 11/19/19 7:59:00 EDT, Height, 77, kg, 11/13/19 17:52:00 EDT, Dry Weight Start Date: 01/28/20 Stop Date: 02/25/20 Status: OrderedtraZODone 100 mg oral tablet 100 mg, 1, tablet, By Mouth, Daily at bedtime, # 14 tablet, Refills 1, Tot. Refills 1, Maintenance, 01/28/20 11:40:00 EDT, Route to Pharmacy Electronically, [facility]/pharmacy #[id number], 161, cm, 11/19/19 7:59:00 EDT, Height, 77, kg, 11/13/19 17:52:00 EDT, Dry... Start Date: 01/28/20 Stop Date: 02/25/20 Status: OrderedtraZODone 50 mg oral tablet 50 mg, 1, tablet, By Mouth, Daily at bedtime, PRN, # 30 tablet, Refills 0, Tot. Refills 0, Maintenance, Sleep, 11/19/19 8:39:00 EDT, Print Requisition Start Date: 11/19/19 Stop Date: 12/19/19 Status: Ordered Problem List Condition Effective Dates Status Health Status Informant Alcohol dependence(Confirmed) Active SANAZ II without treatment(Confirmed) 2009 Active Depression, major(Confirmed) Active Posttraumatic stress Active disorder(Confirmed) Vital Signs Most recent to oldest 1 2 3 [Reference Range]: Oxygen Saturation [94-100 %] 99 % 99 % 94 % (02/06/20 11:10 AM) (02/06/20 6:47 AM) (02/05/20 10 :24 PM) Pulse Rate [55-90 bpm] 73 bpm 81 bpm 81 bpm (02/06/20 11:10 AM) (02/06/20 9:13 AM) (02/06/20 6: 47 AM) Blood Pressure [90-138/55-84 119/79 mm Hg 110/70 mm Hg 110 /70 mm Hg mm Hg] (02/06/20 11:10 AM) (02/06/20 9:13 AM) (02/06/20 6: 47 AM) Respiratory Rate [16-30 18 br/min 18 br/min 16 br/mi n br/min] (02/06/20 11:10 AM) (02/06/20 6:47 AM) (02/05/20 10 :24 PM) Temperature [96.8-100.4 DegF] 97.7 DegF 97.6 DegF 97 .5 DegF (02/06/20 11:10 AM) (02/06/20 6:47 AM) (02/05/20 10 :24 PM) Mode of Delivery (Oxygen) Room air Room air Room a ir (02/06/20 11:10 AM) (02/06/20 6:47 AM) (02/05/20 10 :24 PM) Blood pressure sites Arm, right Arm, right Arm, left (02/06/20 11:10 AM) (02/06/20 6:47 AM) (02/05/20 10 :24 PM) Temperature Route Oral Oral Oral (02/06/20 11:10 AM) (02/06/20 6:47 AM) (02/05/20 10 :24 PM) Social History Social History Type Response Smoking Status Current every day smoker entered on: 08/27/16 Sex
--- OUTSIDE RECORDS SUMMARY | 2022-06-02 02:28 | XMS_ITS | Continuity of Care Document ---
:1990 Author Organization [facility] Address Unavailable , Care Team Providers Name Role Phone Not on Staff, PCP Primary Care Physician Unavailable Encounter [facility] Date(s): 01/02/22 - 02/01/22 [facility] Allergies, Adverse Reactions, Alerts No Known Allergies [...]
--- OUTSIDE RECORDS SUMMARY | 2022-06-02 02:28 | XMS_ITS | Continuity of Care Document ---
:1990 Author Organization [facility] Address [address] [place] [address]- Care Team Providers Name Role Phone Not on Staff, PCP Primary Care Physician Unavailable Encounter [facility] Date(s): 06/21/20 - 06/22/[address] [address]- [facility] Encounter Diagnosis Acute alcohol use (Final) - 06/21/20 Alcoholism (Final) - 06/21/20 Discharge Disposition: A-D/C Home Attending Physician: Zuleyma Eastman MD Admitting Physician: Zuleyma Eastman MD Referring Physician: Not on Staff, Referring [...] 04/28/20 9:48:00 EDT, Route to Pharmacy Electronically, [facility]/pharmacy #[id number], 162, cm, 04/27/20 23:16:00 EDT, Height, 82, kg, 04/21/20 16:02:00 EDT, Dry Weight Start Date: 04/28/20 Status: OrderedchlorproMAZINE 50 mg oral tablet = 50 mg, By Mouth, Every 6 hours, PRN Agitation, # 60 tablet, 0 Refills, Maintenance, 04/28/20 9:48:00 EDT, Tablet, [facility]/pharmacy #[id number], 162, cm, 04/27/20 23:16:00 EDT, Height, 82, [...] 01/28/20 11:40:00 EDT, Route to Pharmacy Electronically, [facility]/pharmacy #[id number], 161, cm, 11/19/19 7:59:00 [...] recent to oldest [Reference Range]: 1 2 Oxygen Saturation [94-100 %] 98 % 96 % (06/22/20 12:04 AM) (06/21/20 5:09 PM) Pulse Rate [55-90 bpm] 79 bpm 66 bpm (06/22/20 12:04 AM) (06/21/20 5:09 PM) Blood Pressure [90-138/55-84 mm Hg] 107/72 mm Hg 98/5 9 mm Hg (06/22/20 12:04 AM) (06/21/20 5:09 PM) Respiratory Rate [16-30 br/min] 16 br/min 18 br/mi n (06/22/20 12:04 AM) (06/21/20 5:09 PM) Temperature [96.8-100.4 DegF] 97.6 DegF 97.5 DegF (06/22/20 12:04 AM) (06/21/20 5:09 PM) Mode of Delivery (Oxygen) Room air Room air (06/22/20 12:04 AM) (06/21/20 5:09 PM) Blood pressure sites Arm, right Arm, left (06/22/20 12:04 AM) (06/21/20 5:09 PM) Temperature Route Oral Oral (06/22/20 12:04 AM) (06/21/20 5:09 PM) Social History Social History Type Response Smoking Status Current every day smoker entered on: 08/27/16 Sex Female
--- OUTSIDE RECORDS SUMMARY | 2022-06-02 02:28 | XMS_ITS | Continuity of Care Document ---
:1990 Author Organization [facility] Address [address] [place] [address]- Care Team Providers Name Role Phone Not on Staff, PCP Primary Care Physician Unavailable Encounter [facility] Date(s): 05/31/20 - 05/31/[address] [address]- [facility] Discharge Disposition: A-D/C Home Attending Physician: Samir ISAAC, Carmela Rodriguez Admitting Physician: Carmela Dawson MD Referring Physician: Not on Staff, Referring [...] EDT, Route to Pharmacy Electronically, [facility]/pharmacy #[id number], 162, cm, 04/27/20 23:16:00 EDT, Height, 82, kg, 04/21/20 16:02:00 EDT, Dry Weight Start Date: 04/28/20 Status: OrderedchlorproMAZINE 50 mg oral tablet = 50 mg, By Mouth, Every 6 hours, PRN Agitation, # 60 tablet, 0 Refills, Maintenance, 04/28/20 9:48:00 EDT, Tablet, [facility]/pharmacy #[id number], 162, cm, 04/27/20 23:16:00 EDT, Height, [...] EDT, Route to Pharmacy Electronically, [facility]/pharmacy #[id number], 161, cm, 11/19/19 7:59:00 EDT, Height, [...] Range]: Oxygen Saturation [94-100 %] 99 % 98 % 98 % (05/31/20 9:43 AM) (05/31/20 6:04 AM) (05/31/20 2:3 7 AM) Pulse Rate [55-90 bpm] 85 bpm 86 bpm 94 bpm (05/31/20 9:43 AM) (05/31/20 6:04 AM) *H* (05/31/20 2:37 AM ) Blood Pressure [90-138/55-84 mm 117/71 mm Hg 117/61 mm Hg 117/80 mm Hg Hg] (05/31/20 9:43 AM) (05/31/20 6:04 AM) (05/31/20 2:3 7 AM) Respiratory Rate [16-30 br/min] 17 br/min 16 br/min 18 br/min (05/31/20 9:43 AM) (05/31/20 6:04 AM) (05/31/20 2:3 7 AM) Temperature [96.8-100.4 DegF] 98.1 DegF 98.1 DegF 98 .6 DegF (05/31/20 9:43 AM) (05/31/20 6:04 AM) (05/31/20 2:3 7 AM) Mode of Delivery (Oxygen) Room air Room air Room a ir (05/31/20 9:43 AM) (05/31/20 6:04 AM) (05/31/20 2:3 7 AM) Blood pressure sites Arm, right Arm, left (05/31/20 6:04 AM) (05/31/20 2:37 AM) Temperature Route Oral Oral Oral (05/31/20 9:43 AM) (05/31/20 6:04 AM) (05/31/20 2:3 7 AM) Social History Social History Type Response Smoking Status Current every day smoker entered on: 08/27/16 Sex Female
--- OUTSIDE RECORDS SUMMARY | 2022-06-02 02:28 | XMS_ITS | Continuity of Care Document ---
:1990 Author Organization [facility] Address [address] [place] [address]- Care Team Providers Name Role Phone Not on Staff, PCP Primary Care Physician Unavailable [facility] Date[facility]s): 03/[facility] - 03/02/[address] [address]- [facility] Discharge Disposition: A-D/C Home Attending Physician: Ronit Viera DO Admitting Physician: Ronit Viera DO Referring Physician: Not on Staff, Referring MD [...] Start Date: 11/19/19 Stop Date: 01/18/20 Status: Orderedpermethrin 5% topical cream 1 application, Topically, Once, # 60 Gm, 0 Refills, Soft Stop, 01/30/20 5:04:00 EDT, Cream, [facility]/pharmacy #[id number], 1 application Topically Once, 161, cm, 11/19/19 7:59:00 EDT, Height, 77, kg, 11/13/19 17:52:00 EDT, Dry Weight Start Date: 01/30/20 Status: Orderedthioridazine 25 mg oral tablet 1 tablet = 25 mg, By Mouth, 3 times a day, # 42 tablet, 1 Refills, Maintenance, 01/28/20 11:41:00 EDT, Tablet, [facility]/pharmacy #[id number], 161, cm, 11/19/19 7:59:00 EDT, Height, 77, kg, 11/13/19 17:52:00 EDT, Dry Weight Start Date: 01/28/20 Stop Date: 02/25/20 Status: OrderedtraZODone 100 mg oral tablet 100 mg, 1, tablet, By Mouth, Daily at bedtime, # 14 tablet, Refills 1, Tot. Refills 1, Maintenance, 01/28/20 11:40:00 EDT, Route to Pharmacy Electronically, [facility]/pharmacy #[id number], 161, cm, 11/19/19 7:59:00 [...] Range]: 1 2 Oxygen Saturation [94-100 %] 100 % 100 % (03/02/20 6:40 AM) (03/02/20 1:32 AM) Pulse Rate [55-90 bpm] 81 bpm 105 bpm (03/02/20 6:40 AM) *H* (03/02/20 1:32 AM) Blood Pressure [90-138/55-84 mm Hg] 106/65 mm Hg 125/ 89 mm Hg (03/02/20 6:40 AM) (03/02/20 1:32 AM) Respiratory Rate [16-30 br/min] 20 br/min 20 br/mi n (03/02/20 6:40 AM) (03/02/20 1:32 AM) Temperature [96.8-100.4 DegF] 97.8 DegF 97.8 DegF (03/02/20 6:40 AM) (03/02/20 1:32 AM) Mode of Delivery (Oxygen) Room air Room air (03/02/20 6:40 AM) (03/02/20 1:32 AM) Blood pressure sites Arm, left Arm, right (03/02/20 6:40 AM) (03/02/20 1:32 AM) Temperature Route Oral Oral (03/02/20 6:40 AM) (03/02/20 1:32 AM) Social History Social History Type Response Smoking Status Current every day smoker entered on: 08/27/16 Sex Female
--- OUTSIDE RECORDS SUMMARY | 2022-06-02 02:28 | XMS_ITS | Continuity of Care Document ---
:1990 Author Organization [facility] Address [address] [place] [address]- Care Team Providers Name Role Phone Not on Staff, PCP Primary Care Physician Unavailable [facility]counter [facility] Date(s): 05/29/20 - 05/30/20 [facility] [address] [place] [address]- [facility] Discharge Disposition: A-D/C Home Attending Physician: Linh Kowalski DO Admitting Physician: Linh Kowalski DO Referring Physician: Not on Staff, Referring [...] 04/28/20 9:48:00 EDT, Route to Pharmacy Electronically, [facility]/pharmacy #[id number], 162, cm, 04/27/20 23:16:00 EDT, Height, 82, kg, 04/21/20 16:02:00 EDT, Dry Weight Start Date: 04/28/20 Status: OrderedchlorproMAZINE 50 mg oral tablet = 50 mg, By Mouth, Every 6 hours, PRN Agitation, # 60 tablet, 0 Refills, Maintenance, 04/28/20 9:48:00 EDT, Tablet, [facility]/pharmacy #[id number], 162, cm, 04/27/20 23:16:00 EDT, Height, [...] 01/28/20 11:40:00 EDT, Route to Pharmacy Electronically, [facility]/pharmacy #[id number], 161, cm, 11/19/19 7:59:00 EDT, Height, 77, [...] Saturation [94-100 %] 100 % 100 % (05/30/20 6:32 AM) (05/29/20 8:53 PM) Pulse Rate [55-90 bpm] 98 bpm 102 bpm *H* *H* (05/30/20 6:32 AM) (05/29/20 8:53 PM) Blood Pressure [90-138/55-84 mm Hg] 130/91 mm Hg 132/ 97 mm Hg (05/30/20 6:32 AM) (05/29/20 8:53 PM) Respiratory Rate [16-30 br/min] 16 br/min 16 br/mi n (05/30/20 6:32 AM) (05/29/20 8:53 PM) Temperature [96.8-100.4 DegF] 98.2 DegF 98.0 DegF (05/30/20 6:32 AM) (05/29/20 8:53 PM) Mode of Delivery (Oxygen) Room air Room air (05/30/20 6:32 AM) (05/29/20 8:53 PM) Blood pressure sites Arm, left (05/29/20 8:53 PM) Temperature Route Oral Oral (05/30/20 6:32 AM) (05/29/20 8:53 PM) Social History Social History Type Response Smoking Status Current every day smoker entered on: 08/27/16 Sex Female
--- OUTSIDE RECORDS SUMMARY | 2022-06-02 02:28 | XMS_ITS | Continuity of Care Document ---
:1990 Author Organization [facility] Address [address] [place] [address]- Care Team Providers Name Role Phone Not on Staff, PCP Primary Care Physician Unavailable Encounter [facility] Date(s): 08/08/20 - 08/08/[address] [address]- Discharge Disposition: Transferred to an intermediate care [facility] Attending Physician: Xander Stroud MD Admitting Physician: Xander Stroud MD Referring Physician: Not on Staff, Referring [...] 04/28/20 9:48:00 EDT, Route to Pharmacy Electronically, [facility]/pharmacy #[id number], 162, cm, 04/27/20 23:16:00 EDT, Height, 82, kg, 04/21/20 16:02:00 EDT, Dry Weight Start Date: 04/28/20 Status: OrderedchlorproMAZINE 50 mg oral tablet = 50 mg, By Mouth, Every 6 hours, PRN Agitation, # 60 tablet, 0 Refills, Maintenance, 04/28/20 9:48:00 EDT, Tablet, [facility]/pharmacy #[id number], 162, cm, 04/27/20 23:16:00 EDT, Height, 82, kg, 04/21/20 16:02:00EDT, Dry Weight Start Date: 04/28/20 Status: OrderedcloNIDine 0.1 mg oral tablet 0.1 mg, 1, tablet, By Mouth, 3 times a day, PRN, # 60 tablet, Refills 1, Tot. Refills 1, Maintenance, Anxiety Agitation, 11/19/19 8:38:00 EDT, Print Requisition Start Date: 11/19/19 Stop Date: 01/18/20 Status: OrderedMacrobid macrocrystals-monohydrate 100 mg oral capsule 1 capsule = 100 mg, By Mouth, 2 times a day, for 7 days, # 14 capsule, 0 Refills, Acute 08/12/20 0:17:00 EST, 08/05/20 0:17:00 EST, Capsule, [facility]/pharmacy #[id number], Partial fill upon patient request if theprescription is for a schedule II opioid drug., 1... Start Date: 08/05/20 Stop Date: 08/12/20 Status: Orderedmultivitamin Multiple Vitamins oral tablet 1 [...] 5 Refills, Maintenance, 08/04/20 23:54:00 EST, Tablet, [facility]/pharmacy #[id number], Partial fill upon patient request if the prescription is for a schedule II opioid drug., 1 tablet By Mouth Daily, 162, cm, 04/28/20 10:0... Start Date: 08/04/20 Status: OrderedtraZODone 100 mg oral tablet 100 mg, 1, tablet, By Mouth, Daily at bedtime, # 14 tablet, Refills 1, Tot. Refills 1, Maintenance, 01/28/20 11:40:00 EDT, Route to Pharmacy Electronically, [facility]/pharmacy #[id number], 161, cm, 11/19/19 7:59:00 EDT, Height, [...]
--- OUTSIDE RECORDS SUMMARY | 2022-06-02 02:28 | XMS_ITS | Continuity of Care Document ---
:1990 Author Organization [facility] Address [address] [place] [address]- Care Team Providers Name Role Phone Not on Staff, PCP Primary Care Physician Unavailable [facility] Date(s): 01/13/20 - 01/13/[address] [address]- [facility] Encounter Diagnosis Acute alcohol use (Final) - 01/13/20 Discharge Disposition: A-D/C Home Attending Physician: Xander Stroud MD Admitting Physician: [...] EDT, Print Requisition Start Date: 11/19/19 Status: OrderedhydrOXYzine hydrochloride 50 mg oral tablet 1 tablet = 50 mg, By Mouth, 4 times a day, PRN for anxiety, for 30 days, # 120 tablet, 1 Refills, Acute 01/18/20 8:41:00 EDT, 11/19/19 8:41:00 EDT, Tablet Start Date: 11/19/19 Stop Date: 01/18/20 Status: OrderedLexapro 10 mg oral tablet 1 tablet = 10 mg, By Mouth, Daily, # 30 tablet, 1 Refills, Maintenance, 11/19/19 8:38:00 EDT, Tablet Start Date: 11/19/19 Status: Orderedmultivitamin Multiple Vitamins oral tablet 1 tablet, By Mouth, Daily, # 30 tablet, 1 Refills, Maintenance, 11/19/19 8:39:00 EDT, Tablet Start Date: 11/19/19 Stop Date: 01/18/20 Status: Orderedthiamine 100 mg oral tablet 100 mg, 1, tablet, By Mouth, Daily, for 30 days, # 30 tablet, Refills 1, Tot. Refills 1, Acute 01/18/20 8:39:00 EDT, 11/19/19 8:39:00 EDT, Print Requisition Start Date: 11/19/19 Stop Date: 01/18/20 Status: OrderedtraZODone 50 mg oral tablet 50 [...] Saturation [94-100 %] 97 % 100 % 98 % (01/13/20 10:48 AM) (01/13/20 6:15 AM) (01/13/20 2: 35 AM) Pulse Rate [55-90 bpm] 93 bpm 72 bpm 106 bpm *H* (01/13/20 6:15 AM) *H* (01/13/20 10:48 AM) (01/13/20 2:35 AM) Blood Pressure [90-138/55-84 110/63 mm Hg 122/82 mm Hg 122 /80 mm Hg mm Hg] (01/13/20 10:48 AM) (01/13/20 6:15 AM) (01/13/20 2: 35 AM) Respiratory Rate [16-30 20 br/min 16 br/min 19 br/mi n br/min] (01/13/20 10:48 AM) (01/13/20 6:15 AM) (01/13/20 2: 35 AM) Temperature [96.8-100.4 DegF] 98.2 DegF 98.0 DegF 98 .2 DegF (01/13/20 10:48 AM) (01/13/20 6:15 AM) (01/13/20 2: 35 AM) Mode of Delivery (Oxygen) Room air Room air Room a ir (01/13/20 10:48 AM) (01/13/20 6:15 AM) (01/13/20 2: 35 AM) Blood pressure sites Arm, left Arm, left Arm, left (01/13/20 10:48 AM) (01/13/20 6:15 AM) (01/13/20 2: 35 AM) Temperature Route Oral Oral Oral (01/13/20 10:48 AM) (01/13/20 6:15 AM) (01/13/20 2: 35 AM) Social History Social History Type Response Smoking Status Current every day smoker entered on: 08/27/16 Sex
--- OUTSIDE RECORDS SUMMARY | 2022-06-02 02:28 | XMS_ITS | Continuity of Care Document ---
:1990 Author Organization [facility] Address [address] [place] [address]- Care Team Providers Name Role Phone Not on Staff, PCP Primary Care Physician Unavailable [facility] Date(s): 03/25/20 - 03/25/20 [facility] [address] [place] [address]- [facility] Discharge Disposition: A-D/C Home Attending Physician: Linh [...] Refills, Soft Stop, 01/30/20 5:04:00 EDT, Cream, [facility]/pharmacy #[id number], 1 application Topically Once, 161, cm, 11/19/19 7:59:00 EDT, Height, 77, kg, 11/13/19 17:52:00 EDT, Dry Weight Start Date: 01/30/20 Status: Orderedthioridazine 25 mg oral tablet 1 tablet = 25 mg, By Mouth, 3 times a day, # 42 tablet, 1 Refills, Maintenance, 01/28/20 11:41:00 EDT, Tablet, [facility]/pharmacy #[id number], 161, cm, 11/19/19 7:59:00 EDT, Height, 77, kg, 11/13/19 17:52:00 EDT, Dry Weight Start Date: 01/28/20 Stop Date: 02/25/20 Status: OrderedtraZODone 100 mg oral tablet 100 mg, 1, tablet, By Mouth, Daily at bedtime, # 14 tablet, Refills 1, Tot. Refills 1, Maintenance, 01/28/20 11:40:00 EDT, Route to Pharmacy Electronically, [facility]/pharmacy #[id number], 161, cm, 11/19/19 7:59:00 EDT, Height, [...] 3 [Reference Range]: Oxygen Saturation [94-100 %] 100 % 98 % 98 % (03/25/20 1:51 PM) (03/25/20 5:43 AM) (03/25/20 3:4 4 AM) Pulse Rate [55-90 bpm] 96 bpm 108 bpm 92 bpm *H* *H* *H* (03/25/20 1:51 PM) (03/25/20 5:43 AM) (03/25/20 3:4 4 AM) Blood Pressure [90-138/55-84 mm 126/77 mm Hg 124/86 mm Hg 118/64 mm Hg Hg] (03/25/20 1:51 PM) (03/25/20 5:43 AM) (03/25/20 3:4 4 AM) Respiratory Rate [16-30 br/min] 18 br/min 20 br/min 18 br/min (03/25/20 1:51 PM) (03/25/20 5:43 AM) (03/25/20 3:4 4 AM) Temperature [96.8-100.4 DegF] 98.5 DegF 97.9 DegF 98 .4 DegF (03/25/20 1:51 PM) (03/25/20 5:43 AM) (03/25/20 3:4 4 AM) Mode of Delivery (Oxygen) Room air Room air Room a ir (03/25/20 1:51 PM) (03/25/20 5:43 AM) (03/25/20 3:4 4 AM) Blood pressure sites Arm, left Arm, right Arm, right (03/25/20 1:51 PM) (03/25/20 5:43 AM) (03/25/20 3:4 4 AM) Temperature Route Oral Oral Oral (03/25/20 1:51 PM) (03/25/20 5:43 AM) (03/25/20 3:4 4 AM) Social History Social History Type Response Smoking Status Current every day smoker entered on: 08/27/16 Sex Female
--- OUTSIDE RECORDS SUMMARY | 2022-06-02 02:28 | XMS_ITS | Continuity of Care Document ---
:1990 Author Organization [facility] Address [address] [place] [address]- Care Team Providers Name Role Phone Not on Staff, PCP Primary Care Physician Unavailable [facility] Date(s): 11/03/19 - 11/04/[address] [address]- [facility] Encounter Diagnosis Alcohol intoxication (Final) - 11/03/19 Vaginal discharge (Final) - 11/03/19 Depression (Final) - 11/03/19 Discharge Disposition: A-D/C Home Attending Physician: Xander [...] inactivated 06/15/15 Not Given Patient Refuses Medications chlordiazePOXIDE 10 mg oral capsule See Instructions, Take [...] Depression, major(Confirmed) Active Posttraumatic stress Active disorder(Confirmed) Results Orders for Microbiology Reports Name Date Wet Prep 11/03/19 Microbiology Reports TEST:Wet Prep STATUS:Auth (Verified) BODY SITE: SOURCE:VAGINA COLLECTED DATE/TIME:11/03/19 11:06 PMWet Prep SPECIMEN DESCRIPTION : VAGINAL SPECIMEN SPECIAL REQUESTS : NONE DIRECT EXAM : 1+ WHITE BLOOD CELLS NO YEAST OBSERVED NO TRICHOMONAS OBSERVED NO CLUE CELLS OBSERVED REPORT STATUS : FINAL 11/03/2019 Vital Signs Most recent to oldest [Reference 1 2 3 Range]: Oxygen Saturation [94-100 %] 100 % 100 % 100 % (11/04/19 1:00 PM) (11/04/19 6:46 AM) (11/03/19 9:56 PM) Pulse Rate [55-90 bpm] 80 bpm 87 bpm 89 bpm (11/04/19 1:00 PM) (11/04/19 6:46 AM) (11/03/19 9:56 PM) Blood Pressure [90-138/55-84 mm 108/68 mm Hg 104/59 mm Hg 134/78 mm Hg Hg] (11/04/19 1:00 PM) (11/04/19 6:46 AM) (11/03/19 9:56 PM) Respiratory Rate [16-30 br/min] 17 br/min 16 br/min 18 br/min (11/04/19 1:00 PM) (11/04/19 6:46 AM) (11/03/19 9:56 PM) Temperature [96.8-100.4 DegF] 98.1 DegF 98.2 DegF (11/04/19 6:46 AM) (11/03/19 6:34 PM) Mode of Delivery (Oxygen) Room air Room air Room a ir (11/04/19 1:00 PM) (11/04/19 6:46 AM) (11/03/19 9:56 PM) Blood pressure sites Arm, left (11/04/19 6:46 AM) Temperature Route Oral Oral (11/04/19 6:46 AM) (11/03/19 6:34 PM) Social History Social History Type Response Smoking Status Current every day smoker entered on: 08/27/16 Sex Female
--- OUTSIDE RECORDS SUMMARY | 2022-06-02 02:28 | XMS_ITS | Continuity of Care Document ---
:1990 Author Organization [facility] Address [address] [place] [address]- Care Team Providers Name Role Phone Not on Staff, PCP Primary Care Physician Unavailable [facility] Date(s): 01/28/20 - 01/28/[address] [address]- [facility] Discharge Disposition: A-D/C Home Attending Physician: Vandana Hudson MD Admitting Physician: Vandana Hudson MD Referring Physician: Not on Staff, Referring [...] Start Date: 01/28/20 Stop Date: 02/25/20 Status: Orderedthioridazine 25 mg oral tablet 1 [...] 2 3 Range]: Oxygen Saturation [94-100 %] 97 % 98 % 98 % (01/28/20 9:37 AM) (01/28/20 6:29 AM) (01/28/20 4:59 A M) Pulse Rate [55-90 bpm] 93 bpm 86 bpm 101 bpm *H* (01/28/20 6:29 AM) *H* (01/28/20 9:37 AM) (01/28/20 4:59 AM ) Blood Pressure [90-138/55-84 mm 124/82 mm Hg 93/47 mm Hg 99/51 mm Hg Hg] (01/28/20 9:37 AM) (01/28/20 6:29 AM) (01/28/20 4:59 A M) Respiratory Rate [16-30 br/min] 18 br/min 18 br/min 18 br/min (01/28/20 9:37 AM) (01/28/20 6:29 AM) (01/28/20 4:59 A M) Temperature [96.8-100.4 DegF] 97.8 DegF 97.6 DegF (01/28/20 6:29 AM) (01/28/20 12:52 AM) Mode of Delivery (Oxygen) Room air Room air Room a ir (01/28/20 9:37 AM) (6/3/20 6:29 AM) (01/28/20 4:59 A M) Temperature Route Oral Oral (01/28/20 6:29 AM) (01/28/20 12:52 AM) Social History Social History Type Response Smoking Status Current every day smoker entered on: 08/27/16 Sex
--- OUTSIDE RECORDS SUMMARY | 2022-06-02 02:28 | XMS_ITS | Continuity of Care Document ---
:1990 Author Organization [facility] Address [address] [place] [address]- Care Team Providers Name Role Phone Not on Staff, PCP Primary Care Physician Unavailable [facility] Date(s): 12/29/19 - 12/30/[address] [address]- [facility] Discharge Disposition: A-D/C Home Attending Physician: Xander [...] %] 100 % 98 % 98 % (12/30/19 10:10 AM) (12/30/19 6:04 AM) (12/30/19 4:00 AM) Pulse Rate [55-90 bpm] 113 bpm 87 bpm 95 bpm *H* (12/30/19 6:04 AM) *H* (12/30/19 10:10 AM) (12/30/19 4:00 A M) Blood Pressure [90-138/55-84 mm 128/98 mm Hg 106/78 mm Hg 112/76 mm Hg Hg] (12/30/19 10:10 AM) (12/30/19 6:04 AM) (12/30/19 4:00 AM) Respiratory Rate [16-30 br/min] 19 br/min 20 br/min 18 br/min (12/30/19 10:10 AM) (12/30/19 6:04 AM) (12/30/19 4:00 AM) Temperature [96.8-100.4 DegF] 98.1 DegF 98.3 DegF 98 .2 DegF (12/30/19 10:10 AM) (12/30/19 6:04 AM) (12/30/19 4:00 AM) Mode of Delivery (Oxygen) Room air Room air Room a ir (12/30/19 10:10 AM) (12/30/19 6:04 AM) (12/30/19 4:00 AM) Blood pressure sites Arm, right Arm, left (12/30/19 10:10 AM) (12/30/19 6:04 AM) Temperature Route Oral Oral Oral (12/30/19 10:10 AM) (12/30/19 6:04 AM) (12/30/19 4:00 AM) Social History Social History Type Response Smoking Status Current every day smoker entered on: 08/27/16 Sex
--- OUTSIDE RECORDS SUMMARY | 2022-06-02 02:28 | XMS_ITS | Continuity of Care Document ---
:1990 Author Organization [facility] Address [address] [place] [address]- Care Team Providers Name Role Phone Not on Staff, PCP Primary Care Physician Unavailable [facility] Date(s): 03/30/20 - 03/31/[address] [address]- [facility] Encounter Diagnosis Alcohol intoxication (Final) - 03/31/20 Discharge Disposition: A-D/C Home Attending Physician: Gregorio Antoine MD Admitting Physician: Gregorio Antoine MD Referring Physician: Not on Staff, Referring [...] Refills, Soft Stop, 01/30/20 5:04:00 EDT, Cream, [facility]/pharmacy #[id number], 1 application Topically Once, 161, cm, 11/19/19 7:59:00 EDT, Height, 77, kg, 11/13/19 17:52:00 EDT, Dry Weight Start Date: 01/30/20 Status: Orderedthioridazine 25 mg oral tablet 1 tablet = 25 mg, By Mouth, 3 times a day, # 42 tablet, 1 Refills, Maintenance, 01/28/20 11:41:00 EDT, Tablet, [facility]/pharmacy #[id number], 161, cm, 11/19/19 7:59:00 EDT, Height, 77, kg, 11/13/19 17:52:00 EDT, Dry Weight Start Date: 01/28/20 Stop Date: 02/25/20 Status: OrderedtraZODone 100 mg oral tablet 100 mg, 1, tablet, By Mouth, Daily at bedtime, # 14 tablet, Refills 1, Tot. Refills 1, Maintenance, 01/28/20 11:40:00 EDT, Route to Pharmacy Electronically, [facility]/pharmacy #[id number], 161, cm, 11/19/19 7:59:00 EDT, [...] major(Confirmed) Active Posttraumatic stress Active disorder(Confirmed) Results Radiology Reports Exam Date Time Procedure Performing Provider Status 03/30/20 11:14 PM Knee 1 or 2 Views Left Pablo Fan; Auth (Ve rified) Notes:(Knee 1 or 2 Views Left) Reason For Exam: TraumaRESULT: Knee 1 or 2 Views Left Knee 1 or 2 Views Left, views Reason: Trauma; Clinical Question(s): Fracture; Hx of Present Illness: Patient reports SI HI. Threatens to choke herself with cords when she enters the room. COMPARISON: None. FINDINGS: There is no evidence of acute or healing fracture, dislocation or bone lesion. Small marginal osteophytes in all 3 compartments. Moderate effusion. IMPRESSION: Tricompartmental osteoarthropathy. WSN: [id number] Ordering Physician: Le Patel Dictated By: Damir Rand MD Dictated Date/Time: 03/30/20 11:26 p Reviewed By: Damir Rand MD Signed By: Damir Rand MD Signed Date/Time: 03/30/20 11:26 pm Transcribed By: SHAYE Transcribed Date/Time: 03/30/20 11:24 pm Vital Signs Most recent to oldest [Reference 1 2 3 Range]: Height 161 cm 161 cm (03/31/20 2:17 PM) (03/30/20 9:23 PM) Weight 77 kg 77 kg (03/31/20 2:17 PM) (03/30/20 9:23 PM) Oxygen Saturation [94-100 %] 100 % 100 % 100 % (03/31/20 2:17 PM) (03/31/20 6:52 AM) (03/31/20 2:17 A M) Pulse Rate [55-90 bpm] 91 bpm 88 bpm 108 bpm *H* (03/31/20 6:52 AM) *H* (03/31/20 2:17 PM) (03/31/20 2:17 AM ) Body Mass Index [18.5-24.99] 29.71 *H* (03/31/20 2:17 PM) Blood Pressure [90-138/55-84 mm 113/69 mm Hg 111/63 mm Hg 115/66 mm Hg Hg] (03/31/20 2:17 PM) (03/31/20 6:52 AM) (03/31/20 2:17 A M) Respiratory Rate [16-30 br/min] 18 br/min 18 br/min 18 br/min (03/31/20 2:17 PM) (03/31/20 6:52 AM) (03/31/20 2:17 A M) Temperature [96.8-100.4 DegF] 97.9 DegF 98 DegF 98 .2 DegF (03/31/20 2:17 PM) (03/31/20 6:52 AM) (03/30/20 9:12 P M) Mode of Delivery (Oxygen) Room air Room air Room a ir (03/31/20 2:17 PM) (03/31/20 6:52 AM) (03/31/20 2:17 A M) Blood pressure sites Arm, right Arm, left Arm, right (03/31/20:17 PM) (03/31/20 6:52 AM) (03/31/20 2:17 A M) Temperature Route Oral Oral Oral (03/31/20:17 PM) (03/31/20 6:52 AM) (03/30/20 9:12 P M) Dry Weight 77 kg 77 kg (03/31/20 2:17 PM) (03/30/20 9:23 PM) Social History Social History Type Response Smoking Status Current every day smoker entered on: 08/27/16 Sex Female
--- OUTSIDE RECORDS SUMMARY | 2022-06-02 02:28 | XMS_ITS | Continuity of Care Document ---
:1990 Author Organization [facility] Address Unavailable , Care Team Providers Name Role Phone Not on Staff, PCP Primary Care Physician Unavailable Encounter [facility] Date(s): 12/30/21 - 01/29/22 [facility] Allergies, Adverse Reactions, Alerts No [...]
--- OUTSIDE RECORDS SUMMARY | 2022-06-02 02:28 | XMS_ITS | Continuity of Care Document ---
:1990 Author Organization [facility] Address [address] [place] [id number] Care Team Providers Name Role Phone Not on Staff, PCP Primary Care Physician Unavailable Encounter [facility] Date(s): 01/31/22 - 03/02/[address] [id number] Attending Physician: Lucia Charles Admitting Physician: Lucia Charles Referring Physician: AdmtrLucia Allergies, Adverse Reactions, Alerts No Known Allergies [...] Refills, Maintenance, 04/28/20 9:48:00 EDT, Tablet, [id number], 162, cm, 04/27/20 23:16:00 EDT, Height, 82, [...]
--- OUTSIDE RECORDS SUMMARY | 2022-06-02 02:28 | XMS_ITS | Continuity of Care Document ---
:1990 Author Organization [facility] Address [address] [place] [address]- Care Team Providers Name Role Phone Not on Staff, PCP Primary Care Physician Unavailable [place] [facility] [place] - 06/03/[address] [address]- [facility] Encounter Diagnosis Acute alcohol intoxication (Final) - 06/03/20 Discharge Disposition: A-D/C Home Attending Physician: Shahriar Carlos MD Admitting Physician: Shahriar Carlos MD Referring Physician: Not on Staff, Referring [...] 04/28/20 9:48:00 EDT, Route to Pharmacy Electronically, [facility]/pharmacy #[id number], 162, cm, 04/27/20 23:16:00 EDT, Height, [...] 01/28/20 11:40:00 EDT, Route to Pharmacy Electronically, [facility]/pharmacy #[id number], 161, cm, 11/19/19 7:59:00 EDT, Height, [...] 3 [Reference Range]: Oxygen Saturation [94-100 %] 98 % 95 % 100 % (06/03/20 8:07 AM) (06/03/20 4:13 AM) (06/02/20 9:1 4 PM) Pulse Rate [55-90 bpm] 104 bpm 94 bpm 76 bpm *H* *H* (06/02/20 9:14 PM ) (06/03/20 8:07 AM) (06/03/20 4:13 AM) Blood Pressure [90-138/55-84 mm 111/64 mm Hg 108/66 mm Hg 104/71 mm Hg Hg] (06/03/20 8:07 AM) (06/03/20 4:13 AM) (06/02/20 9:1 4 PM) Respiratory Rate [16-30 br/min] 17 br/min 17 br/min 18 br/min (06/03/20:07 AM) (06/03/20 4:13 AM) (06/02/20 9:1 4 PM) Temperature [96.8-100.4 DegF] 98.2 DegF (06/03/20 4:13 AM) Mode of Delivery (Oxygen) Room air Room air Room a ir (06/03/20 8:07 AM) (06/03/20 4:13 AM) (06/02/20 9:1 4 PM) Blood pressure sites Arm, left Arm, right Arm, right (06/03/20:07 AM) (06/03/20 4:13 AM) (06/02/20 9:1 4 PM) Temperature Route Oral (06/03/20 4:13 AM) Social History Social History Type Response Smoking Status Current every day smoker entered on: 08/27/16 Sex Female
--- OUTSIDE RECORDS SUMMARY | 2022-06-02 02:28 | XMS_ITS | Continuity of Care Document ---
:1990 Author Organization [facility] Address [address] [place] [address]- Care Team Providers Name Role Phone Not on Staff, PCP Primary Care Physician Unavailable [facility]counter [facility] Date(s): 02/15/20 - 02/15/[address] [address]- [facility] Encounter Diagnosis Pelvic inflammatory disease (Final) - 02/15/20 Discharge Disposition: A-D/C Home Attending Physician: Rogelio Almaraz MD Admitting Physician: Rogelio Almaraz MD Referring Physician: Not on Staff, Referring [...] Start Date: 11/19/19 Stop Date: 01/18/20 Status: Ordereddoxycycline hyclate 100 mg oral capsule 1 capsule = 100 mg, By Mouth, Every 12 hours, for 14 days, # 28 capsule, 0 Refills, Acute 02/29/20 8:41:00 EDT, 02/15/20 8:41:00 EDT, Capsule, [facility]/pharmacy #[id number], 161, cm, 11/19/19 7:59:00 EDT, Height,77, kg, 11/13/19 17:52:00 EDT, Dry Weight Start Date: 02/15/20 Stop Date: 02/29/20 Status: Orderedfamotidine 20 mg oral tablet 20 [...] 02/25/20 8:00:00 EDT, 01/28/20 11:41:00 EDT, Tablet, [facility]/pharmacy #[id number], 161, cm, 11/19/19 7:59:00 EDT, Height, 77, kg, 11/13/19 17:52:00 EDT, Dry Weight Start Date: 01/28/20 Stop Date: 02/25/20 Status: Orderedpermethrin 5% topical cream 1 application, Topically, Once, # 60 Gm, 0 Refills, Soft Stop, 01/30/20 5:04:00 EDT, Cream, [facility]/pharmacy #[id number], 1 application Topically Once, 161, cm, 11/19/19 7:59:00 EDT, Height, 77, kg, 11/13/19 17:52:00 EDT, Dry Weight Start Date: 01/30/20 Status: Orderedthioridazine 25 mg oral tablet 1 tablet = 25 mg, By Mouth, 3 times a day, # 42 tablet, 1 Refills, Maintenance, 01/28/20 11:41:00 EDT, Tablet, [facility]/pharmacy #[id number], 161, cm, 11/19/19 7:59:00 EDT, Height, 77, kg, 11/13/19 17:52:00 EDT, Dry Weight Start Date: 01/28/20 Stop Date: 02/25/20 Status: OrderedtraZODone 100 mg oral tablet 100 mg, 1, tablet, By Mouth, Daily at bedtime, # 14 tablet, Refills 1, Tot. Refills 1, Maintenance, 01/28/20 11:40:00 EDT, Route to Pharmacy Electronically, [facility]/pharmacy #[id number], 161, cm, 11/19/19 7:59:00 [...] for Microbiology Reports Name Date Wet Prep 02/15/20 Microbiology Reports TEST:Wet Prep STATUS:Auth (Verified) BODY SITE: SOURCE:VAGINA COLLECTED DATE/TIME:02/15/20 8:43 AMWet Prep SPECIMEN DESCRIPTION : VAGINAL SPECIMEN SPECIAL REQUESTS : NONE DIRECT EXAM : 3+ WHITE BLOOD CELLS 2+ CLUE CELLS NO YEAST OBSERVED NO TRICHOMONAS OBSERVED REPORT STATUS : FINAL 02/15/2020 Vital Signs Most recent to oldest 1 2 3 [Reference Range]: Oxygen Saturation [94-100 %] 96 % 98 % 96 % (02/15/20 9:20 AM) (02/15/20 7:05 AM) (02/15/20 12: 21 AM) Pulse Rate [55-90 bpm] 89 bpm 91 bpm 102 bpm (02/15/20 9:20 AM) *H* *H* (02/15/20 7:05 AM) (02/15/20 12:21 AM) Blood Pressure [90-138/55-84 115/63 mm Hg 118/64 mm Hg 109 /71 mm Hg mm Hg] (02/15/20 9:20 AM) (02/15/20 7:05 AM) (02/15/20 12: 21 AM) Respiratory Rate [16-30 18 br/min 16 br/min br/min] (02/15/20 9:20 AM) (02/15/20 12:21 AM) Temperature [96.8-100.4 DegF] 97.7 DegF 98.3 DegF 98 .0 DegF (02/15/20 9:20 AM) (02/15/20 7:05 AM) (02/15/20 12: 21 AM) Mode of Delivery (Oxygen) Room air Room air Room a ir (02/15/20 9:20 AM) (02/15/20 7:05 AM) (02/15/20 12: 21 AM) Blood pressure sites Arm, left Arm, left (02/15/20 7:05 AM) (02/15/20 12:21 AM) Temperature Route Oral Oral Oral (02/15/20 9:20 AM) (02/15/20 7:05 AM) (02/15/20 12: 21 AM) Social History Social History Type Response Smoking Status Current every day smoker entered on: 08/27/16 Sex
--- OUTSIDE RECORDS SUMMARY | 2022-06-02 02:28 | XMS_ITS | Continuity of Care Document ---
:1990 Author Organization [facility] Address [address] [place] [address]- Care Team Providers Name Role Phone Not on Staff, PCP Primary Care Physician Unavailable Encounter [facility] [place] Date(s): 04/20/20 - 04/21/[address] [address]- [facility] Discharge Disposition: Transfer to [facility] Attending Physician: Mor Chavez MD Admitting Physician: Mor Chavez MD Referring Physician: Not on Staff, Referring [...] inactivated 06/15/15 Not Given Patient Refuses Medications cloNIDine 0.1 mg oral tablet 0.1 mg, 1, [...] EDT, EC Tablet Start Date: 04/21/20 Status: Orderedthioridazine 25 mg oral tablet 1 tablet = 25 mg, By Mouth, 3 times a day, # 42 tablet, 1 Refills, Maintenance, 01/28/20 11:41:00 EDT, Tablet, [facility]/pharmacy #[id number], 161, cm, 11/19/19 7:59:00 EDT, Height, 77, kg, 11/13/19 17:52:00 EDT, Dry Weight Start Date: 01/28/20 Stop Date: 02/25/20 Status: OrderedtraZODone 100 mg oral tablet 100 mg, 1, tablet, By Mouth, Daily at bedtime, # 14 tablet, Refills 1, Tot. Refills 1, Maintenance, 01/28/20 11:40:00 EDT, Route to Pharmacy Electronically, [facility]/pharmacy #[id number], 161, cm, 11/19/19 7:59:00 EDT, Height, [...] Saturation [94-100 %] 100 % 100 % 97 % (04/21/20 8:19 AM) (04/21/20 5:54 AM) (04/20/20 8:0 0 PM) Pulse Rate [55-90 bpm] 88 bpm 88 bpm 104 bpm (04/21/20 8:56 AM) (04/21/20 8:19 AM) *H* (04/21/20 5:54 AM ) Blood Pressure [90-138/55-84 mm 122/78 mm Hg 121/77 mm Hg 121/77 mm Hg Hg] (04/21/20 1:21 PM) (8/26/20 8:56 AM) (04/21/20 8:1 9 AM) Respiratory Rate [16-30 br/min] 16 br/min 16 br/min 18 br/min (04/21/20 8:56 AM) (04/21/20 8:19 AM) (04/21/20 5:5 4 AM) Temperature [96.8-100.4 DegF] 98.0 DegF 98.2 DegF 97 .5 DegF (04/21/20 8:56 AM) (04/21/20 5:54 AM) (04/20/20 8:0 0 PM) Liters per Minute 0 L/min (04/21/20 5:54 AM) Mode of Delivery (Oxygen) Room air Room air Room a ir (04/21/20 8:19 AM) (04/21/20 5:54 AM) (04/20/20 8:0 0 PM) Blood pressure sites Arm, left (04/20/20 8:00 PM) Temperature Route Oral Oral Oral (04/21/20 8:56 AM) (04/21/20 5:54 AM) (04/20/20 8:0 0 PM) Social History Social History Type Response Smoking Status Current every day smoker entered on: 08/27/16 Sex Female
--- OUTSIDE RECORDS SUMMARY | 2022-06-02 02:28 | XMS_ITS | Continuity of Care Document ---
:1990 Author Organization [facility] Address [address] [place] [address]- Care Team Providers Name Role Phone Not on Staff, PCP Primary Care Physician Unavailable Encounter [facility] [place] Date(s): 08/24/20 - 09/23/[address] [address] Allergies, Adverse Reactions, Alerts Substance Reaction Severity [...] 9:48:00 EDT, Route to Pharmacy Electronically, [facility]/pharmacy #[id number], 162, cm, 04/27/20 23:16:00 EDT, Height, 82, kg, 04/21/20 16:02:00 EDT, Dry Weight Start Date: 04/28/20 Status: OrderedchlorproMAZINE 50 mg oral tablet = 50 mg, By Mouth, Every 6 hours, PRN Agitation, # 60 tablet, 0 Refills, Maintenance, 04/28/20 9:48:00 EDT, Tablet, [facility]/pharmacy #[id number], 162, cm, 04/27/20 23:16:00 EDT, [...] 5 Refills, Maintenance, 08/04/20 23:54:00 EST, Tablet, [facility]/pharmacy #[id number], Partial fill upon patient request if the prescription is for a schedule II opioid drug., 1 tablet By Mouth Daily, 162, cm, 04/28/20 10:0... Start Date: 08/04/20 Status: OrderedtraZODone 100 mg oral tablet 100 mg, 1, tablet, By Mouth, Daily at bedtime, # 14 tablet, Refills 1, Tot. Refills 1, Maintenance, 01/28/20 11:40:00 EDT, Route to Pharmacy Electronically, [facility]/pharmacy #[id number], 161, cm, 11/19/19 7:59:00 EDT, [...]
--- OUTSIDE RECORDS SUMMARY | 2022-06-02 02:28 | XMS_ITS | Continuity of Care Document ---
:1990 Author Organization [facility] Address [address] [place] [address], [address] [place] [address]- Care Team Providers Name Role Phone Not on Staff, PCP Primary Care Physician Unavailable Encounter [facility] Date(s): 01/03/22 - 02/02/[address] [address] Attending Physician: Lucia Charles Admitting [...] Refills, Maintenance, 04/28/20 9:48:00 EDT, Tablet, [facility]/pharmacy #[id number], 162, cm, 04/27/20 23:16:00 EDT, Height, 82, [...]
--- OUTSIDE RECORDS SUMMARY | 2022-06-02 02:28 | XMS_ITS | Continuity of Care Document ---
:1990 Author Organization [facility] Address [address] [place] [address]- Care Team Providers Name Role Phone Not on Staff, PCP Primary Care Physician Unavailable Encounter [facility] Date(s): 09/03/19 - 09/04/[address] [address]- [facility] Encounter Diagnosis Alcohol intoxication (Final) - 09/03/19 Discharge Disposition: A-D/C Home Attending Physician: Claudia Beck MD Admitting Physician: Claudia Beck MD Referring Physician: Not on Staff, Referring [...] 2 3 Range]: Oxygen Saturation [94-100 %] 98 % 99 % 93 % (09/04/19 1:29 PM) (09/04/19 9:00 AM) *L* (09/04/19 7:08 AM) Pulse Rate [55-90 bpm] 64 bpm 79 bpm 86 bpm (09/04/19 1:29 PM) (09/04/19 9:00 AM) (09/04/19 7:08 A M) Blood Pressure [90-138/55-84 mm 118/74 mm Hg 116/77 mm Hg 106/55 mm Hg Hg] (09/04/19 1:29 PM) (09/04/19 9:00 AM) (09/04/19 7:08 A M) Respiratory Rate [16-30 br/min] 16 br/min 20 br/min 18 br/min (09/04/19 1:29 PM) (09/04/19 9:00 AM) (09/04/19 7:08 A M) Temperature [96.8-100.4 DegF] 98.6 DegF 97.6 DegF 97 .7 DegF (09/04/19 1:29 PM) (09/04/19 9:00 AM) (09/04/19 7:08 A M) Mode of Delivery (Oxygen) Room air Room air Room a ir (09/04/19 1:29 PM) (09/04/19 9:00 AM) (09/04/19 7:08 A M) Blood pressure sites Arm, left Arm, left Arm, right (09/04/19 1:29 PM) (09/04/19 9:00 AM) (09/04/19 7:08 A M) Temperature Route Oral Oral Oral (09/04/19 1:29 PM) (09/04/19 9:00 AM) (09/04/19 7:08 A M) Social History Social History Type Response Smoking Status Current every day smoker entered on: 08/27/16 Sex Female
--- OUTSIDE RECORDS SUMMARY | 2022-06-02 02:28 | XMS_ITS | Continuity of Care Document ---
:1990 Author Organization [facility] Address [address] [place] [address]- Care Team Providers Name Role Phone Not on Staff, PCP Primary Care Physician Unavailable Encounter [facility] Date(s): 03/03/20 - 03/04/[address] [address]- [facility] Discharge Disposition: A-D/C Home Attending Physician: Sven Nash MD Admitting Physician: Sven Nash MD Referring Physician: Not on Staff, Referring [...] Refills, Soft Stop, 01/30/20 5:04:00 EDT, Cream, [facility]/pharmacy #[id number], 1 application Topically Once, 161, cm, 11/19/19 7:59:00 EDT, Height, 77, kg, 11/13/19 17:52:00 EDT, Dry Weight Start Date: 01/30/20 Status: Orderedthioridazine 25 mg oral tablet 1 tablet = 25 mg, By Mouth, 3 times a day, # 42 tablet, 1 Refills, Maintenance, 01/28/20 11:41:00 EDT, Tablet, [facility]/pharmacy #[id number], 161, cm, 11/19/19 7:59:00 EDT, Height, 77, kg, 11/13/19 17:52:00 EDT, Dry Weight Start Date: 01/28/20 Stop Date: 02/25/20 Status: OrderedtraZODone 100 mg oral tablet 100 mg, 1, tablet, By Mouth, Daily at bedtime, # 14 tablet, Refills 1, Tot. Refills 1, Maintenance, 01/28/20 11:40:00 EDT, Route to Pharmacy Electronically, [facility]/pharmacy #[id number], 161, cm, 11/19/19 7:59:00 EDT, [...] Saturation [94-100 %] 100 % 100 % 99 % (03/04/20 6:01 AM) (03/04/20 1:00 AM) (03/03/20 9:39 P M) Pulse Rate [55-90 bpm] 79 bpm 80 bpm 86 bpm (03/04/20 6:01 AM) (03/04/20 1:00 AM) (03/03/20 9:39 P M) Blood Pressure [90-138/55-84 mm 109/67 mm Hg 118/74 mm Hg 138/99 mm Hg Hg] (03/04/20 6:01 AM) (03/04/20 1:00 AM) (03/03/20 9:39 P M) Respiratory Rate [16-30 br/min] 19 br/min 18 br/min 18 br/min (03/04/20 6:01 AM) (03/04/20 1:00 AM) (03/03/20 9:39 P M) Temperature [96.8-100.4 DegF] 97.8 DegF 98.4 DegF 98 .4 DegF (03/04/20 6:01 AM) (03/04/20 1:00 AM) (03/03/20 9:39 P M) Mode of Delivery (Oxygen) Room air Room air Room a ir (03/04/20 6:01 AM) (03/04/20 1:00 AM) (7/8/20 9:39 P M) Temperature Route Oral Oral Oral (03/04/20 6:01 AM) (03/04/20 1:00 AM) (03/03/20 9:39 P M) Social History Social History Type Response Smoking Status Current every day smoker entered on: 08/27/16 Sex Female
--- OUTSIDE RECORDS SUMMARY | 2022-06-02 02:28 | XMS_ITS | Continuity of Care Document ---
:1990 Author Organization [facility] Address [address] [place] [address]- Care Team Providers Name Role Phone Not on Staff, PCP Primary Care Physician Unavailable Encounter [facility] [place] Date(s): 01/05/22 - 03/02/[address] [address] Attending Physician: Kendell Castle MD Admitting Physician: Kendell Castle MD Referring Physician: Not on Staff, Referring [...] 0 Refills, Maintenance, 04/28/20 9:48:00 EDT, Tablet, [facility]/pharmacy #[id number], 162, cm, 04/27/20 23:16:00 [...]
--- OUTSIDE RECORDS SUMMARY | 2022-06-02 02:28 | XMS_ITS | Continuity of Care Document ---
:1990 Author Organization [facility] Address Unavailable , Care Team Providers Name Role Phone Not on Staff, PCP Primary Care Physician Unavailable [place] [facility] [place] [facility] Attending Physician: Not on Staff, Attending MD Referring Physician: Not on Staff, Referring [...] Maintenance, 04/28/20 9:48:00 EDT, Tablet, [facility]/pharmacy #[id number], 162, cm, 04/27/20 23:16:00 EDT, Height, 82, kg, 04/21/20 16:02:00EDT, Dry Weight Start Date: 04/28/20 Status: OrderedcloNIDine 0.1 mg oral tablet 0.1 mg, 1, tablet, By Mouth, 3 times a day, PRN, # 60 tablet, Refills 1, Tot. Refills 1, Maintenance, Anxiety Agitation, 03/25/20 8:38:00 EDT, Print Requisition Start Date: 11/19/19 [...]
--- OUTSIDE RECORDS SUMMARY | 2022-06-02 02:28 | XMS_ITS | Continuity of Care Document ---
:1990 Author Organization [facility] Address [address] [place] [address]- Care Team Providers Name Role Phone Not on Staff, PCP Primary Care Physician Unavailable [facility]counter [facility] Date(s): 01/13/20 - 01/14/[address] [address] [facility] Encounter Diagnosis Acute alcohol intoxication (Final) - 01/14/20 Discharge Disposition: A-D/C Home Attending Physician: Ny Jarrell MD Admitting Physician: Ny Jarrell MD Referring Physician: Not on Staff, Referring [...] Range]: Oxygen Saturation [94-100 %] 99 % 97 % 100 % (01/14/20 12:28 PM) (01/14/20 4:49 AM) (01/13/20 10 :24 PM) Pulse Rate [55-90 bpm] 97 bpm 89 bpm 94 bpm *H* (01/14/20 4:49 AM) *H* (01/14/20 12:28 PM) (01/13/20 10:2 4 PM) Blood Pressure [90-138/55-84 143/80 mm Hg 115/74 mm Hg 112 /51 mm Hg mm Hg] *H* (01/14/20 4:49 AM) (01/13/20 10:24 PM) (01/14/20 12:28 PM) Respiratory Rate [16-30 20 br/min 16 br/min 20 br/mi n br/min] (01/14/20 12:28 PM) (01/14/20 4:49 AM) (01/13/20 10 :24 PM) Temperature [96.8-100.4 98.0 DegF 97.8 DegF DegF] (01/14/20 12:28 PM) (01/13/20 10:24 PM) Mode of Delivery (Oxygen) Room air Room air Room a ir (01/14/20 12:28 PM) (01/14/20 4:49 AM) (01/13/20 10 :24 PM) Blood pressure sites Arm, left Arm, left Arm, left (01/14/20 12:28 PM) (01/14/20 4:49 AM) (01/13/20 10 :24 PM) Temperature Route Oral Oral (01/14/20 12:28 PM) (01/13/20 10:24 PM) Social History Social History Type Response Smoking Status Current every day smoker entered on: 08/27/16 Sex
--- OUTSIDE RECORDS SUMMARY | 2022-06-02 02:29 | XMS_ITS | Continuity of Care Document ---
:1990 Author Organization [facility] Address [address] [place] [address]- Care Team Providers Name Role Phone Not on Staff, PCP Primary Care Physician Unavailable Encounter [facility] Date(s): 05/02/20 - 05/02/20 [facility] [address] [place] [address]- [facility] Encounter Diagnosis Alcohol intoxication (Final) - 05/02/20 Discharge Disposition: A-D/C Home Attending Physician: Елена Zamarripa DO Admitting Physician: Елена Zamarripa DO Referring Physician: Not on Staff, Referring [...] 04/28/20 9:48:00 EDT, Route to Pharmacy Electronically, [facility]/pharmacy #[id number], 162, cm, 04/27/20 23:16:00 EDT, Height, 82, kg, 04/21/20 16:02:00 EDT, Dry Weight Start Date: 04/28/20 Status: OrderedchlorproMAZINE 50 mg oral tablet = 50 mg, By Mouth, Every 6 hours, PRN Agitation, # 60 tablet, 0 Refills, Maintenance, 04/28/20 9:48:00 EDT, Tablet, [facility]/pharmacy #[id number], 162, cm, 04/27/20 23:16:00 [...] 01/28/20 11:40:00 EDT, Route to Pharmacy Electronically, [facility]/pharmacy #[id number], 161, cm, 11/19/19 7:59:00 [...] 2 Oxygen Saturation [94-100 %] 100 % 98 % (05/02/20 6:48 AM) (05/02/20 3:12 AM) Pulse Rate [55-90 bpm] 80 bpm 86 bpm (05/02/20 6:48 AM) (05/02/20 3:12 AM) Blood Pressure [90-138/55-84 mm Hg] 115/70 mm Hg 135/ 97 mm Hg (05/02/20 6:48 AM) (05/02/20 3:12 AM) Respiratory Rate [16-30 br/min] 17 br/min 20 br/mi n (05/02/20 6:48 AM) (05/02/20 3:12 AM) Temperature [96.8-100.4 DegF] 97.4 DegF 97.5 DegF (05/02/20 6:48 AM) (05/02/20 3:12 AM) Mode of Delivery (Oxygen) Room air Room air (05/02/20 6:48 AM) (05/02/20 3:12 AM) Blood pressure sites Arm, left Arm, left (05/02/20 6:48 AM) (05/02/20 3:12 AM) Temperature Route Oral Oral (05/02/20 6:48 AM) (05/02/20 3:12 AM) Social History Social History Type Response Smoking Status Current every day smoker entered on: 08/27/16 Sex Female
--- OUTSIDE RECORDS SUMMARY | 2022-06-02 02:29 | XMS_ITS | Continuity of Care Document ---
:1990 Author Organization [facility] Address [address] [place] [address]- Care Team Providers Name Role Phone Not on Staff, PCP Primary Care Physician Unavailable Encounter [facility] [place] Date(s): 08/04/20 - 08/05/[address] [address] Discharge Disposition: A-D/C Home Attending Physician: Jerod Resendez MD Admitting Physician: Jerod Resendez MD Referring Physician: Jerod Resendez MD Allergies, Adverse Reactions, Alerts Substance Reaction [...] 04/28/20 9:48:00 EDT, Route to Pharmacy Electronically, [facility]/pharmacy #[id number], 162, cm, 04/27/20 23:16:00 EDT, [...] 08/12/20 0:17:00 EST, 08/05/20 0:17:00 EST, Capsule, [facility]/pharmacy #[id number], Partial fill upon patient request [...] 5 Refills, Maintenance, 08/04/20 23:54:00 EST, Tablet, [facility]/pharmacy #[id number], Partial fill upon patient request if the prescription is for a schedule II opioid drug., 1 tablet By Mouth Daily, 162, cm, 04/28/20 10:0... Start Date: 08/04/20 Status: OrderedtraZODone 100 mg oral tablet 100 mg, 1, tablet, By Mouth, Daily at bedtime, # 14 tablet, Refills 1, Tot. Refills 1, Maintenance, 01/28/20 11:40:00 EDT, Route to Pharmacy Electronically, [facility]/pharmacy #[id number], 161, cm, 11/19/19 7:59:00 EDT, [...] Depression, major(Confirmed) Active Posttraumatic stress Active disorder(Confirmed) Procedures Procedure Date Related Diagnosis Body Site Status delivery Completed Vital Signs Most recent to oldest [Reference Range]: 1 Oxygen Saturation [94-100 %] 99 % (08/04/20 10:37 PM) Pulse Rate [55-90 bpm] 72 bpm (08/04/20 10:37 PM) Blood Pressure [90-138/55-84 mm Hg] 102/61 mm Hg (08/04/20 10:37 PM) Temperature [96.8-100.4 DegF] 99.1 DegF (08/04/20 10:37 PM) Mode of Delivery (Oxygen) Room air (08/04/20 10:37 PM) Blood pressure sites Arm, right (08/04/20 10:37 PM) Temperature Route Oral (08/04/20 10:37 PM) Social History Social History Type Response Smoking Status Current every day smoker entered on: 08/27/16 Sex Female
--- OUTSIDE RECORDS SUMMARY | 2022-06-02 02:29 | XMS_ITS | Continuity of Care Document ---
:1990 Author Organization [facility] Address [address] [place] [address]- Care Team Providers Name Role Phone Not on Staff, PCP Primary Care Physician Unavailable [facility]counter [facility] Date(s): 02/12/20 - 02/12/[address] [address] [facility] Encounter Diagnosis Alcohol intoxication (Final) - 02/12/20 Discharge Disposition: A-D/C Home Attending Physician: Mor Chavez MD Admitting Physician: [...] 02/25/20 8:00:00 EDT, 01/28/20 11:41:00 EDT, Tablet, [facility]/pharmacy #[id number], 161, cm, 11/19/19 7:59:00 EDT, Height, 77, kg, 11/13/19 17:52:00 EDT, Dry Weight Start Date: 01/28/20 Stop Date: 02/25/20 Status: Orderedpermethrin 5% topical cream 1 application, Topically, Once, # 60 Gm, 0 Refills, Soft Stop, 01/30/20 5:04:00 EDT, Cream, [facility]/pharmacy #[id number], 1 application Topically Once, 161, cm, 11/19/19 7:59:00 EDT, Height, 77, kg, 11/13/19 17:52:00 EDT, Dry Weight Start Date: 01/30/20 Status: Orderedthioridazine 25 mg oral tablet 1 tablet = 25 mg, By Mouth, 3 times a day, # 42 tablet, 1 Refills, Maintenance, 01/28/20 11:41:00 EDT, Tablet, [facility]/pharmacy #[id number], 161, cm, 11/19/19 7:59:00 EDT, Height, 77, kg, 11/13/19 17:52:00 EDT, Dry Weight Start Date: 01/28/20 Stop Date: 02/25/20 Status: OrderedtraZODone 100 mg oral tablet 100 mg, 1, tablet, By Mouth, Daily at bedtime, # 14 tablet, Refills 1, Tot. Refills 1, Maintenance, 01/28/20 11:40:00 EDT, Route to Pharmacy Electronically, [facility]/pharmacy #[id number], 161, cm, 11/19/19 7:59:00 EDT, Height, [...] %] 100 % 100 % 99 % (02/12/20 3:58 PM) (02/12/20 1:56 PM) (02/12/20 10: 45 AM) Pulse Rate [55-90 bpm] 99 bpm 90 bpm 93 bpm *H* (02/12/20 1:56 PM) *H* (02/12/20 3:58 PM) (02/12/20 10:45 AM) Blood Pressure [90-138/55-84 140/83 mm Hg 111/46 mm Hg 108 /58 mm Hg mm Hg] *H* (02/12/20 1:56 PM) (02/12/20 10:45 AM) (02/12/20 3:58 PM) Respiratory Rate [16-30 16 br/min 16 br/min 18 br/mi n br/min] (02/12/20 3:58 PM) (02/12/20 1:56 PM) (02/12/20 10: 45 AM) Temperature [96.8-100.4 DegF] 97.9 DegF 98.7 DegF 97 .4 DegF (02/12/20 1:56 PM) (02/12/20 10:45 AM) (02/12/20 6: 25 AM) Mode of Delivery (Oxygen) Room air Room air Room a ir (02/12/20 3:58 PM) (02/12/20 1:56 PM) (02/12/20 10: 45 AM) Blood pressure sites Arm, left Arm, right Arm, right (02/12/20 3:58 PM) (02/12/20 1:56 PM) (02/12/20 10: 45 AM) Temperature Route Oral Oral Oral (02/12/20 1:56 PM) (02/12/20 10:45 AM) (02/12/20 6: 25 AM) Social History Social History Type Response Smoking Status Current every day smoker entered on: 08/27/16 Sex
--- OUTSIDE RECORDS SUMMARY | 2022-06-02 02:29 | XMS_ITS | Continuity of Care Document ---
:1990 Author Organization [facility] Address [address] [place] [address]- Care Team Providers Name Role Phone Not on Staff, PCP Primary Care Physician Unavailable [place] [facility] [place] 04/22/[address] [address]- Discharge Disposition: A-D/C Home Attending Physician: Estiven Mcadams MD Admitting Physician: Estiven Mcadams MD Referring Physician: Not on Staff, Referring [...] 04/28/20 9:48:00 EDT, Route to Pharmacy Electronically, [facility]/pharmacy #[id number], 162, cm, 04/27/20 23:16:00 EDT, Height, 82, kg, 04/21/20 16:02:00 EDT, Dry Weight Start Date: 04/28/20 Status: OrderedchlorproMAZINE 50 mg oral tablet = 50 mg, By Mouth, Every 6 hours, PRN Agitation, # 60 tablet, 0 Refills, Maintenance, 04/28/20 9:48:00 EDT, Tablet, [facility]/pharmacy #[id number], 162, cm, 04/27/20 23:16:00 EDT, [...] 5 Refills, Maintenance, 08/04/20 23:54:00 EST, Tablet, [facility]/pharmacy #[id number], Partial fill upon patient request if the prescription is for a schedule II opioid drug., 1 tablet By Mouth Daily, 162, cm, 04/28/20 10:0... Start Date: 08/04/20 Status: OrderedtraZODone 100 mg oral tablet 100 mg, 1, tablet, By Mouth, Daily at bedtime, # 14 tablet, Refills 1, Tot. Refills 1, Maintenance, 01/28/20 11:40:00 EDT, Route to Pharmacy Electronically, [facility]/pharmacy #[id number], 161, cm, 11/19/19 7:59:00 [...] Saturation [94-100 %] 97 % 98 % 96 % (04/22/21 10:41 AM) (04/22/21 6:58 AM) (04/22/21 2: 22 AM) Pulse Rate [55-90 bpm] 79 bpm 71 bpm 87 bpm (04/22/21 10:41 AM) (04/22/21 6:58 AM) (04/22/21 2: 22 AM) Blood Pressure [90-138/55-84 101/74 mm Hg 95/48 mm Hg 100 /67 mm Hg mm Hg] (04/22/21 10:41 AM) (04/22/21 6:58 AM) (04/22/21 2: 22 AM) Respiratory Rate [16-30 16 br/min 16 br/min 20 br/mi n br/min] (04/22/21 10:41 AM) (04/22/21 6:58 AM) (04/22/21 2: 22 AM) Temperature [96.8-100.4 DegF] 98.3 DegF 98.0 DegF (04/22/21 10:41 AM) (04/22/21 2:22 AM) Mode of Delivery (Oxygen) Room air Room air Room a ir (04/22/21 10:41 AM) (04/22/21 6:58 AM) (04/22/21 2: 22 AM) Blood pressure sites Arm, right Arm, left (04/22/21 10:41 AM) (04/22/21 2:22 AM) Temperature Route Oral Oral (04/22/21 10:41 AM) (04/22/21 2:22 AM) Social History Social History Type Response Smoking Status Current every day smoker entered on: 08/27/16 Sex
--- OUTSIDE RECORDS SUMMARY | 2022-06-02 02:29 | XMS_ITS | Continuity of Care Document ---
:1990 Author Organization [facility] Address [address] [place] [address]- Care Team Providers Name Role Phone Not on Staff, PCP Primary Care Physician Unavailable Encounter [facility] [place] Date(s): 09/07/21 - 09/08/[address] [address]- Encounter Diagnosis COVID-19 virus infection (Final) - 09/07/21 Discharge Disposition: A-D/C Retirement, Assisted, or Long Term Fac Attending Physician: Zuleyma Eastman MD Admitting Physician: [...] 04/28/20 9:48:00 EDT, Route to Pharmacy Electronically, [facility]/pharmacy #[id number], 162, cm, 04/27/20 23:16:00 EDT, Height, 82, kg, 04/21/20 16:02:00 EDT, Dry Weight Start Date: 04/28/20 Status: OrderedchlorproMAZINE 50 mg oral tablet = 50 mg, By Mouth, Every 6 hours, PRN Agitation, # 60 tablet, 0 Refills, Maintenance, 04/28/20 9:48:00 EDT, Tablet, [facility]/pharmacy #[id number], 162, cm, 04/27/20 23:16:00 EDT, Height, 82, [...] days, # 14 capsule, 0 Refills, Acute 09/15/21 0:05:00 EST, 09/08/21 0:05:00 EST, Capsule, Partial fill upon patient request if the prescription is fora schedule II opioid drug. Start Date: 09/08/21 Stop Date: 09/15/21 Status: OrderedmetroNIDAZOLE 500 mg oral tablet 1 tablet = 500 mg, By Mouth, Every 12 hours, for 7 days, # 14 tablet, 0 Refills, Acute 09/15/21 0:42:00 EST, 09/08/21 0:42:00 EST, Tablet, Partial fill upon patient request if the prescription is for aschedule II opioid drug. Start Date: 09/08/21 Stop Date: 09/15/21 Status: Orderedmultivitamin Multiple Vitamins oral tablet 1 [...] 5 Refills, Maintenance, 08/04/20 23:54:00 EST, Tablet, [facility]/pharmacy #[id number], Partial fill upon patient request if the prescription is for a schedule II opioid drug., 1 tablet By Mouth Daily, 162, cm, 04/28/20 10:0... Start Date: 08/04/20 Status: OrderedTivicay 25 mg oral tablet 2 tablet = 50 mg, By Mouth, Daily, # 10 tablet, 0 Refills, Maintenance, 09/08/21 0:06:00 EST, Tablet, Partial fill upon patient request if the prescription is for a schedule II opioid drug. Start Date: 09/08/21 Stop Date: 09/13/21 Status: OrderedtraZODone 100 mg oral tablet 100 mg, 1, tablet, By Mouth, Daily at bedtime, # 14 tablet, Refills 1, Tot. Refills 1, Maintenance, 01/28/20 11:40:00 EDT, Route to Pharmacy Electronically, [facility]/pharmacy #[id number], 161, cm, 11/19/19 7:59:00 EDT, Height, 77, kg, 11/13/19 17:52:00 EDT, Dry... Start Date: 01/28/20 Stop Date: 02/25/20 Status: OrderedTruvada 200 mg-300 mg oral tablet 1 tablet, By Mouth, Daily, # 5 tablet, 0 Refills, Maintenance, 09/08/21 0:06:00 EST, Tablet, Partialfill upon patient request if the prescription is for a schedule II opioid drug. Start Date: 09/08/21 Stop Date: 09/13/21 Status: OrderedVistaril pamoate 50 mg oral capsule [...] for Microbiology Reports Name Date Wet Prep 09/07/21 Microbiology Reports TEST:Wet Prep STATUS:Auth (Verified) BODY SITE: SOURCE:VAGINA COLLECTED DATE/TIME:09/07/21 11:54 PMWet Prep SPECIMEN DESCRIPTION : VAGINAL SPECIMEN SPECIAL REQUESTS : NONE DIRECT EXAM : 3+ CLUE CELLS NO WBC'S SEEN NO YEAST OBSERVED NO TRICHOMONAS OBSERVED REPORT STATUS : FINAL 09/08/2021 Vital Signs Most recent to oldest 1 2 3 [Reference Range]: Height 163 cm 163 cm (09/07/21 6:30 PM) (09/07/21 4:30 PM) Weight 61 kg 61 kg (09/07/21 6:30 PM) (09/07/21 4:30 PM) Oxygen Saturation [94-100 %] 100 % 95 % 99 % (09/07/21 10:00 PM) (09/07/21 8:00 PM) (09/07/21 6: 30 PM) Pulse Rate [55-90 bpm] 85 bpm 84 bpm 82 bpm (09/07/21 10:00 PM) (09/07/21 8:00 PM) (09/07/21 6: 30 PM) Body Mass Index [18.5-24.99] 22.96 (09/07/21 6:30 PM) Blood Pressure [90-138/55-84 100/55 mm Hg 103/55 mm Hg 104 /58 mm Hg mm Hg] (09/07/21 10:00 PM) (09/07/21 8:00 PM) (09/07/21 6: 30 PM) Respiratory Rate [16-30 20 br/min 20 br/min 18 br/mi n br/min] (09/07/21 10:00 PM) (09/07/21 8:00 PM) (09/07/21 6: 30 PM) Temperature [96.8-100.4 DegF] 98.0 DegF 97.7 DegF (09/07/21 10:00 PM) (09/07/21 4:28 PM) Mode of Delivery (Oxygen) Room air Room air Room a ir (09/07/21 10:00 PM) (09/07/21 8:00 PM) (09/07/21 6: 30 PM) Temperature Route Oral Oral (09/07/21 10:00 PM) (09/07/21 4:28 PM) Dry Weight 61 kg 61 kg (09/07/21 6:30 PM) (09/07/21 4:30 PM) Social History Social History Type Response Smoking Status Current every day smoker entered on: 08/27/16 Sex
--- OUTSIDE RECORDS SUMMARY | 2022-06-02 02:29 | XMS_ITS | Continuity of Care Document ---
:1990 Author Organization [facility] Address [address] [place] [address]- Care Team Providers Name Role Phone Not on Staff, PCP Primary Care Physician Unavailable Encounter [facility] Date(s): 12/31/19 - 01/01/[address] [address]- [facility] Discharge Disposition: A-D/C Halfway, Alf, or Intermediate Fac Attending Physician: Mor Chavez MD Admitting Physician: [...] Range]: Oxygen Saturation [94-100 %] 98 % 98 % 97 % (01/01/20 9:33 AM) (01/01/20 8:44 AM) (01/01/20 6:09 A M) Pulse Rate [55-90 bpm] 83 bpm 112 bpm 92 bpm (01/01/20 9:33 AM) *H* *H* (01/01/20 8:41 AM) (01/01/20 6:09 AM ) Blood Pressure [90-138/55-84 mm 122/69 mm Hg 122/84 mm Hg 119/82 mm Hg Hg] (01/01/20 9:33 AM) (01/01/20 8:41 AM) (01/01/20 6:09 A M) Respiratory Rate [16-30 br/min] 18 br/min 18 br/min 17 br/min (01/01/20 9:33 AM) (01/01/20 8:44 AM) (01/01/20 6:09 A M) Temperature [96.8-100.4 DegF] 98.1 DegF 99.2 DegF 98 .7 DegF (01/01/20 9:33 AM) (01/01/20 8:44 AM) (01/01/20 6:09 A M) Mode of Delivery (Oxygen) Room air Room air Room a ir (01/01/20 9:33 AM) (01/01/20 8:44 AM) (01/01/20 6:09 A M) Blood pressure sites Arm, left Arm, left Arm, left (01/01/20 9:33 AM) (01/01/20 8:44 AM) (01/01/20 6:09 A M) Temperature Route Oral Oral Oral (01/01/20 9:33 AM) (01/01/20 8:44 AM) (01/01/20 6:09 A M) Social History Social History Type Response Smoking Status Current every day smoker entered on: 08/27/16 Sex
--- OUTSIDE RECORDS SUMMARY | 2022-06-02 02:29 | XMS_ITS | Continuity of Care Document ---
:1990 Author Organization [facility] Address Unavailable , Care Team Providers Name Role Phone Not on Staff, PCP Primary Care Physician Unavailable Encounter [facility] [place] Date(s): 07/14/21 - 08/13/21 [facility] Referring Physician: Adriana Cueto Allergies, Adverse Reactions, Alerts Substance Reaction Severity [...] 04/28/20 9:48:00 EDT, Route to Pharmacy Electronically, [facility]/pharmacy #[id number], 162, cm, 04/27/20 23:16:00 EDT, [...] 5 Refills, Maintenance, 08/04/20 23:54:00 EST, Tablet, [facility]/pharmacy #[id number], Partial fill upon patient request if the prescription is for a schedule II opioid drug., 1 tablet By Mouth Daily, 162, cm, 04/28/20 10:0... Start Date: 08/04/20 Status: OrderedtraZODone 100 mg oral tablet 100 mg, 1, tablet, By Mouth, Daily at bedtime, # 14 tablet, Refills 1, Tot. Refills 1, Maintenance, 01/28/20 11:40:00 EDT, Route to Pharmacy Electronically, [facility]/pharmacy #[id number], 161, cm, 11/19/19 7:59:00 EDT, [...]
--- OUTSIDE RECORDS SUMMARY | 2022-06-02 02:29 | XMS_ITS | Continuity of Care Document ---
:1990 Author Organization [facility] Address [address] [place] [address]- Care Team Providers Name Role Phone Not on Staff, PCP Primary Care Physician Unavailable Encounter [facility] [place] Date(s): 03/02/20 - 03/03/[address] [address]- [facility] Discharge Disposition: A-D/C Home Attending Physician: Susan Traore MD Admitting Physician: Susan Traore MD Referring Physician: Not on Staff, Referring [...] Refills, Soft Stop, 01/30/20 5:04:00 EDT, Cream, [facility]/pharmacy #[id number], 1 application Topically Once, 161, cm, 11/19/19 7:59:00 EDT, Height, 77, kg, 11/13/19 17:52:00 EDT, Dry Weight Start Date: 01/30/20 Status: Orderedthioridazine 25 mg oral tablet 1 tablet = 25 mg, By Mouth, 3 times a day, # 42 tablet, 1 Refills, Maintenance, 01/28/20 11:41:00 EDT, Tablet, [facility]/pharmacy #[id number], 161, cm, 11/19/19 7:59:00 EDT, Height, 77, kg, 11/13/19 17:52:00 EDT, Dry Weight Start Date: 01/28/20 Stop Date: 02/25/20 Status: OrderedtraZODone 100 mg oral tablet 100 mg, 1, tablet, By Mouth, Daily at bedtime, # 14 tablet, Refills 1, Tot. Refills 1, Maintenance, 01/28/20 11:40:00 EDT, Route to Pharmacy Electronically, [facility]/pharmacy #[id number], 161, cm, 11/19/19 7:59:00 EDT, Height, [...] 2 3 Range]: Oxygen Saturation [94-100 %] 99 % 98 % 97 % (03/03/20 8:13 AM) (03/03/20 1:34 AM) (03/02/20 8:03 P M) Pulse Rate [55-90 bpm] 82 bpm 79 bpm 109 bpm (03/03/20 8:13 AM) (03/03/20 1:34 AM) *H* (03/02/20 8:03 PM) Blood Pressure [90-138/55-84 mm 148/91 mm Hg 105/68 mm Hg 122/71 mm Hg Hg] *H* (03/03/20 1:34 AM) (03/02/20 8:03 PM ) (03/03/20 8:13 AM) Respiratory Rate [16-30 br/min] 16 br/min 16 br/min 18 br/min (03/03/20 8:13 AM) (03/03/20 1:34 AM) (03/02/20 8:03 P M) Temperature [96.8-100.4 DegF] 97.6 DegF 97.6 DegF 98 .5 DegF (03/03/20 8:13 AM) (03/03/20 1:34 AM) (03/02/20 8:03 P M) Mode of Delivery (Oxygen) Room air Room air Room a ir (03/03/20 8:13 AM) (03/03/20 1:34 AM) (03/02/20 8:03 P M) Blood pressure sites Arm, left Arm, right (03/03/20 1:34 AM) (03/02/20 8:03 PM) Temperature Route Oral Oral Oral (03/03/20 8:13 AM) (03/03/20 1:34 AM) (03/02/20 8:03 P M) Social History Social History Type Response Smoking Status Current every day smoker entered on: 08/27/16 Sex Female
--- OUTSIDE RECORDS SUMMARY | 2022-06-02 02:29 | XMS_ITS | Continuity of Care Document ---
:1990 Author Organization [facility] Address Unavailable , Care Team Providers Name Role Phone Not on Staff, PCP Primary Care Physician Unavailable [place] [facility] [place] 10/12/21 - 11/11/21 [facility] Allergies, Adverse Reactions, Alerts No Known Allergies [...] 04/28/20 9:48:00 EDT, Route to Pharmacy Electronically, [facility]/pharmacy #[id number], 162, cm, 04/27/20 23:16:00 EDT, Height, 82, kg, 04/21/20 16:02:00 EDT, Dry Weight Start Date: 04/28/20 Status: OrderedchlorproMAZINE 50 mg oral tablet = 50 mg, By Mouth, Every 6 hours, PRN Agitation, # 60 tablet, 0 Refills, Maintenance, 04/28/20 9:48:00 EDT, Tablet, [facility]/pharmacy #[id number], 162, cm, 04/27/20 23:16:00 [...] 5 Refills, Maintenance, 08/04/20 23:54:00 EST, Tablet, [facility]/pharmacy #[id number], Partial fill upon patient [...] 01/28/20 11:40:00 EDT, Route to Pharmacy Electronically, [facility]/pharmacy #[id number], 161, cm, 11/19/19 7:59:00 [...]
--- OUTSIDE RECORDS SUMMARY | 2022-06-02 02:29 | XMS_ITS | Continuity of Care Document ---
:1990 Author Organization [facility] Address [address] [place] [address]- Care Team Providers Name Role Phone Not on Staff, PCP Primary Care Physician Unavailable Encounter [facility] Date(s): 05/08/20 - 05/10/20 [facility] [address] [place] [id number]- [facility] Encounter Diagnosis Alcohol intoxication (Final) - 05/09/20 Discharge Disposition: A-D/C Home Attending Physician: Shanice ISAAC, Jonathan Hutchinson Admitting Physician: Jonathan Prasad MD Referring Physician: Not on Staff, Referring [...] 04/28/20 9:48:00 EDT, Route to Pharmacy Electronically, [facility]/pharmacy #[id number], 162, cm, 04/27/20 23:16:00 EDT, Height, 82, kg, 04/21/20 16:02:00 EDT, Dry Weight Start Date: 04/28/20 Status: OrderedchlorproMAZINE 50 mg oral tablet = 50 mg, By Mouth, Every 6 hours, PRN Agitation, # 60 tablet, 0 Refills, Maintenance, 04/28/20 9:48:00 EDT, Tablet, [facility]/pharmacy #[id number], 162, cm, 04/27/20 23:16:00 EDT, [...] 01/28/20 11:40:00 EDT, Route to Pharmacy Electronically, [facility]/pharmacy #[id number], 161, cm, 11/19/19 7:59:00 EDT, [...] %] 100 % 100 % 100 % (05/10/20 5:15 AM) (05/09/20 9:29 PM) (05/09/20 3:3 0 PM) Pulse Rate [55-90 bpm] 84 bpm 60 bpm 81 bpm (05/10/20 10:01 AM) (05/10/20 5:15 AM) (05/09/20 9: 29 PM) Blood Pressure [90-138/55-84 125/92 mm Hg 96/56 mm Hg 111 /70 mm Hg mm Hg] (05/10/20 10:01 AM) (05/10/20 5:15 AM) (05/09/20 9: 29 PM) Respiratory Rate [16-30 18 br/min 18 br/min 16 br/mi n br/min] (05/10/20 10:01 AM) (05/10/20 5:15 AM) (05/09/20 9: 29 PM) Temperature [96.8-100.4 DegF] 98.2 DegF 98.5 DegF 98 .3 DegF (05/10/20 10:01 AM) (05/10/20 5:15 AM) (05/09/20 9: 29 PM) Liters per Minute 0 L/min 0 L/min 0 L/min (05/09/20 6:22 AM) (05/09/20 1:19 AM) (05/08/20 7:5 0 PM) Mode of Delivery (Oxygen) Room air Room air Room a ir (05/10/20 5:15 AM) (05/09/20 9:29 PM) (05/09/20 3:3 0 PM) Blood pressure sites Arm, left Arm, right Arm, right (05/10/20 5:15 AM) (05/09/20 9:29 PM) (05/09/20 3:3 0 PM) Temperature Route Oral Oral Oral (05/10/20 10:01 AM) (05/10/20 5:15 AM) (05/09/20 9: 29 PM) Social History Social History Type Response Smoking Status Current every day smoker entered on: 08/27/16 Sex Female
--- OUTSIDE RECORDS SUMMARY | 2022-06-02 02:29 | XMS_ITS | Continuity of Care Document ---
:1990 Author Organization [facility] Address [address] [place] [address]- Care Team Providers Name Role Phone Not on Staff, PCP Primary Care Physician Unavailable Encounter [facility] Date(s): 06/07/20 - 06/07/20 [facility] [address] [place] [id number]- [facility] Encounter Diagnosis Moderate menstrual flow (Final) - 06/07/20 Discharge Disposition: A-D/C Home Attending Physician: Andrei Silva DO Admitting Physician: Andrei Silva DO Referring Physician: Not on Staff, Referring [...] 04/28/20 9:48:00 EDT, Route to Pharmacy Electronically, [facility]/pharmacy #[id number], 162, cm, 04/27/20 23:16:00 EDT, Height, 82, kg, 04/21/20 16:02:00 EDT, Dry Weight Start Date: 04/28/20 Status: OrderedchlorproMAZINE 50 mg oral tablet = 50 mg, By Mouth, Every 6 hours, PRN Agitation, # 60 tablet, 0 Refills, Maintenance, 04/28/20 9:48:00 EDT, Tablet, [facility]/pharmacy #[id number], 162, cm, 04/27/20 23:16:00 EDT, [...] 01/28/20 11:40:00 EDT, Route to Pharmacy Electronically, [facility]/pharmacy #[id number], 161, cm, 11/19/19 7:59:00 EDT, [...] for Microbiology Reports Name Date Wet Prep 06/07/20 Microbiology Reports TEST:Wet Prep STATUS:Auth (Verified) BODY SITE: SOURCE:VAGINA COLLECTED DATE/TIME:06/07/20 7:02 PMWet Prep SPECIMEN DESCRIPTION : VAGINAL SPECIMEN SPECIAL REQUESTS : NONE DIRECT EXAM : NO TRICHOMONAS,YEAST,OR CLUE CELLS OBSERVED NO WBC'S SEEN REPORT STATUS : FINAL 06/07/2020 Vital Signs Most recent to oldest [Reference Range]: 1 2 Weight 87.2 kg 87.2 kg (06/07/20 6:46 PM) (06/07/20 3:07 PM) Oxygen Saturation [94-100 %] 98 % 98 % (06/07/20 6:46 PM) (06/07/20 3:07 PM) Pulse Rate [55-90 bpm] 96 bpm 124 bpm *H* *H* (06/07/20 6:46 PM) (06/07/20 3:07 PM) Blood Pressure [90-138/55-84 mm Hg] 122/78 mm Hg 127/ 87 mm Hg (06/07/20 6:46 PM) (06/07/20 3:07 PM) Respiratory Rate [16-30 br/min] 16 br/min 16 br/mi n (06/07/20 6:46 PM) (06/07/20 3:07 PM) Temperature [96.8-100.4 DegF] 97.8 DegF 98.0 DegF (06/07/20 6:46 PM) (06/07/20 3:07 PM) Mode of Delivery (Oxygen) Room air Room air (06/07/20 6:46 PM) (06/07/20 3:07 PM) Blood pressure sites Arm, left (06/07/20 6:46 PM) Temperature Route Oral Oral (06/07/20 6:46 PM) (06/07/20 3:07 PM) Social History Social History Type Response Smoking Status Current every day smoker entered on: 08/27/16 Sex Female
--- OUTSIDE RECORDS SUMMARY | 2022-06-02 02:29 | XMS_ITS | Continuity of Care Document ---
:1990 Author Organization [facility] Address [address] [place] [address]- Care Team Providers Name Role Phone Not on Staff, PCP Primary Care Physician Unavailable [place] [facility] [place](s): 08/31/20 - 08/31/[address] [address]- Discharge Disposition: A-D/C Walkout Attending Physician: Not [...] 04/28/20 9:48:00 EDT, Route to Pharmacy Electronically, [facility]/pharmacy #[id number], 162, cm, 04/27/20 23:16:00 EDT, Height, 82, kg, 04/21/20 16:02:00 EDT, Dry Weight Start Date: 04/28/20 Status: OrderedchlorproMAZINE 50 mg oral tablet = 50 mg, By Mouth, Every 6 hours, PRN Agitation, # 60 tablet, 0 Refills, Maintenance, 04/28/20 9:48:00 EDT, Tablet, [facility]/pharmacy #[id number], 162, cm, 04/27/20 23:16:00 [...] By Mouth, 2 times a day, for 14 days, # 28 capsule, 0 Refills, Acute 09/09/20 0:20:00 EST, 08/26/20 0:20:00 EST, Capsule, [facility]/pharmacy #[id number], Partial fill upon patient request if the prescription is for a schedule II opioid drug.,... Start Date: 08/26/20 Stop Date: 09/09/20 Status: Orderedmultivitamin Multiple Vitamins oral tablet 1 [...] 5 Refills, Maintenance, 08/04/20 23:54:00 EST, Tablet, [facility]/pharmacy #[id number], Partial fill upon patient request if the prescription is for a schedule II opioid drug., 1 tablet By Mouth Daily, 162, cm, 04/28/20 10:0... Start Date: 08/04/20 Status: OrderedtraZODone 100 mg oral tablet 100 mg, 1, tablet, By Mouth, Daily at bedtime, # 14 tablet, Refills 1, Tot. Refills 1, Maintenance, 01/28/20 11:40:00 EDT, Route to Pharmacy Electronically, [facility]/pharmacy #[id number], 161, cm, 11/19/19 7:59:00 [...]
--- OUTSIDE RECORDS SUMMARY | 2022-06-02 02:29 | XMS_ITS | Continuity of Care Document ---
:1990 Author Organization [facility] Address Unavailable , Care Team Providers Name Role Phone Not on Staff, PCP Primary Care Physician Unavailable [place] [facility] [place]s): 08/25/21 - 09/24/21 [facility] Attending Physician: Lucia Charles Admitting Physician: Lucia Charles Referring Physician: Lucia Charles Allergies, Adverse Reactions, Alerts No Known Allergies [...] 04/28/20 9:48:00 EDT, Route to Pharmacy Electronically, [facility]/pharmacy #[id number], 162, cm, 04/27/20 23:16:00 EDT, Height, 82, kg, 04/21/20 16:02:00 EDT, Dry Weight Start Date: 04/28/20 Status: OrderedchlorproMAZINE 50 mg oral tablet = 50 mg, By Mouth, Every 6 hours, PRN Agitation, # 60 tablet, 0 Refills, Maintenance, 04/28/20 9:48:00 EDT, Tablet, [facility]/pharmacy #[id number], 162, cm, 04/27/20 23:16:00 EDT, [...] 5 Refills, Maintenance, 08/04/20 23:54:00 EST, Tablet, [facility]/pharmacy #[id number], Partial fill upon patient request [...] 01/28/20 11:40:00 EDT, Route to Pharmacy Electronically, [facility]/pharmacy #[id number], 161, cm, 11/19/19 7:59:00 EDT, [...]
--- OUTSIDE RECORDS SUMMARY | 2022-06-02 02:29 | XMS_ITS | Continuity of Care Document ---
:1990 Author Organization [facility] Address Unavailable , Care Team Providers Name Role Phone Not on Staff, PCP Primary Care Physician Unavailable [place] [facility] [place] 12[place] 01/28[place]22 [facility] Attending Physician: Lucia Charles Admitting Physician: Lucia [...] 0 Refills, Maintenance, 04/28/20 9:48:00 EDT, Tablet, [facility]/pharmacy #[id number], 162, cm, 04/27/20 23:16:00 EDT, Height, [...]
--- OUTSIDE RECORDS SUMMARY | 2022-06-02 02:29 | XMS_ITS | Continuity of Care Document ---
:1990 Author Organization [facility] Address [address] [place] [address]- Care Team Providers Name Role Phone Not on Staff, PCP Primary Care Physician Unavailable Encounter [facility] [place] Date(s): 08/25/20 - 08/26/[address] [address]- Encounter Diagnosis Pelvic inflammatory disease (Final) - 08/26/20 Discharge Disposition: A-D/C Home Attending Physician: Greg Perdomo DO Admitting Physician: Greg Perdomo DO Referring Physician: Not on Staff, Referring [...] 9:48:00 EDT, Route to Pharmacy Electronically, [facility]/pharmacy #[id number], 162, cm, 04/27/20 23:16:00 EDT, Height, 82, kg, 04/21/20 16:02:00 EDT, Dry Weight Start Date: 04/28/20 Status: OrderedchlorproMAZINE 50 mg oral tablet = 50 mg, By Mouth, Every 6 hours, PRN Agitation, # 60 tablet, 0 Refills, Maintenance, 04/28/20 9:48:00 EDT, Tablet, [facility]/pharmacy #[id number], 162, cm, 04/27/20 23:16:00 EDT, [...] 09/09/20 0:20:00 EST, 08/26/20 0:20:00 EST, Capsule, [facility]/pharmacy #[id number], Partial fill upon patient request [...] Refills, Maintenance, 08/04/20 23:54:00 EST, Tablet, [facility]/pharmacy #[id number], Partial fill upon patient request if the prescription is for a schedule II opioid drug., 1 tablet By Mouth Daily, 162, cm, 04/28/20 10:0... Start Date: 08/04/20 Status: OrderedtraZODone 100 mg oral tablet 100 mg, 1, tablet, By Mouth, Daily at bedtime, # 14 tablet, Refills 1, Tot. Refills 1, Maintenance, 01/28/20 11:40:00 EDT, Route to Pharmacy Electronically, [facility]/pharmacy #[id number], 161, cm, 11/19/19 7:59:00 EDT, [...] for Microbiology Reports Name Date Wet Prep 08/25/20 Urine Culture (URINE CULTURE) 08/25/20 Microbiology Reports TEST:Wet Prep STATUS:Auth (Verified) BODY SITE: SOURCE:VAGINA COLLECTED DATE/TIME:08/25/20 11:09 PMWet Prep SPECIMEN DESCRIPTION : VAGINAL SPECIMEN SPECIAL REQUESTS : NONE DIRECT EXAM : NO TRICHOMONAS,YEAST,OR CLUE CELLS OBSERVED 2+ WHITE BLOOD CELLS REPORT STATUS : FINAL 08/26/2020TEST:Urine Culture STATUS:Unauthenticated BODY SITE: SOURCE:URINE COLLECTED DATE/TIME:08/25/20 10:14 PMUrine Culture SPECIMEN DESCRIPTION : URINE CLEAN CATCH/MIDSTREAM SPECIAL REQUESTS : NONE Reflexed from [id number] REPORT STATUS : PRELIMINARY REPORT Vital Signs Most recent to oldest 1 2 3 [Reference Range]: Oxygen Saturation [94-100 %] 97 % 99 % 100 % (08/26/20 5:28 AM) (08/26/20 1:50 AM) (08/25/20 9:34 PM) Pulse Rate [55-90 bpm] 99 bpm 117 bpm 74 bpm *H* *H* (08/26/20 1:50 A M) (08/26/20 5:28 AM) (08/26/20 2:48 AM) Blood Pressure [90-138/55-84 107/77 mm Hg 122/85 mm Hg 118 /73 mm Hg mm Hg] (08/26/20 5:28 AM) (08/26/20 2:48 AM) (08/26/20 1:50 AM) Respiratory Rate [16-30 20 br/min 18 br/min 18 br/mi n br/min] (08/26/20 5:28 AM) (08/26/20 2:48 AM) (08/26/20 1:50 AM) Temperature [96.8-100.4 103.1 DegF 98.5 DegF 99.0 Deg F DegF] *H* (08/26/20 2:48 AM) (08/26/20 1:5 0 AM) (08/26/20 5:28 AM) Mode of Delivery (Oxygen) Room air Room air Room a ir (08/26/20 5:28 AM) (08/26/20 1:50 AM) (08/25/20 9:34 PM) Blood pressure sites Arm, right (08/26/20 5:28 AM) Temperature Route Oral Oral Oral (08/26/20 5:28 AM) (08/26/20 2:48 AM) (08/26/20 1:50 AM) Social History Social History Type Response Smoking Status Current every day smoker entered on: 08/27/16 Sex Female
--- OUTSIDE RECORDS SUMMARY | 2022-06-02 02:29 | XMS_ITS | Continuity of Care Document ---
:1990 Author Organization [facility] Address [address] [place] [address]- Care Team Providers Name Role Phone Not on Staff, PCP Primary Care Physician Unavailable Encounter [facility] [place] Date(s): 04/05/20 - 04/06/[address] [address]- [facility] Encounter Diagnosis Alcohol intoxication (Final) - 04/06/20 Discharge Disposition: A-D/C Home Attending Physician: Sven [...] Refills, Soft Stop, 01/30/20 5:04:00 EDT, Cream, [facility]/pharmacy #[id number], 1 application Topically Once, 161, cm, 11/19/19 7:59:00 EDT, Height, 77, kg, 11/13/19 17:52:00 EDT, Dry Weight Start Date: 01/30/20 Status: Orderedthioridazine 25 mg oral tablet 1 tablet = 25 mg, By Mouth, 3 times a day, # 42 tablet, 1 Refills, Maintenance, 01/28/20 11:41:00 EDT, Tablet, [facility]/pharmacy #[id number], 161, cm, 11/19/19 7:59:00 EDT, Height, 77, kg, 11/13/19 17:52:00 EDT, Dry Weight Start Date: 01/28/20 Stop Date: 02/25/20 Status: OrderedtraZODone 100 mg oral tablet 100 mg, 1, tablet, By Mouth, Daily at bedtime, # 14 tablet, Refills 1, Tot. Refills 1, Maintenance, 01/28/20 11:40:00 EDT, Route to Pharmacy Electronically, [facility]/pharmacy #[id number], 161, cm, 11/19/19 7:59:00 EDT, Height, [...] Range]: 1 2 Oxygen Saturation [94-100 %] 99 % 96 % (04/06/20 12:03 AM) (04/05/20 8:53 PM) Pulse Rate [55-90 bpm] 82 bpm 90 bpm (04/06/20 12:03 AM) (04/05/20 8:53 PM) Blood Pressure [90-138/55-84 mm Hg] 119/72 mm Hg 140/ 91 mm Hg (04/06/20 12:03 AM) *H* (04/05/20 8:53 PM) Respiratory Rate [16-30 br/min] 20 br/min 20 br/mi n (04/06/20 12:03 AM) (04/05/20 8:53 PM) Temperature [96.8-100.4 DegF] 97.9 DegF 98.1 DegF (04/06/20 12:03 AM) (04/05/20 8:53 PM) Mode of Delivery (Oxygen) Room air Room air (04/06/20 12:03 AM) (04/05/20 8:53 PM) Blood pressure sites Arm, right Arm, right (04/06/20 12:03 AM) (04/05/20 8:53 PM) Temperature Route Oral Oral (04/06/20 12:03 AM) (04/05/20 8:53 PM) Social History Social History Type Response Smoking Status Current every day smoker entered on: 08/27/16 Sex Female
--- OUTSIDE RECORDS SUMMARY | 2022-06-02 02:29 | XMS_ITS | Continuity of Care Document ---
:1990 Author Organization [facility] Address [address] [place] [address]- Care Team Providers Name Role Phone Not on Staff, PCP Primary Care Physician Unavailable Encounter [facility] Date(s): 03/27/20 - 03/28/20 [facility] [address] [place] [address]- [facility] Discharge Disposition: A-D/C Home Attending Physician: Dangelo Max DO Admitting Physician: Dangelo Max DO Referring Physician: Not on Staff, Referring [...] Soft Stop, 01/30/20 5:04:00 EDT, Cream, [facility]/pharmacy #[id number], 1 application Topically Once, 161, cm, 11/19/19 7:59:00 EDT, Height, 77, kg, 11/13/19 17:52:00 EDT, Dry Weight Start Date: 01/30/20 Status: Orderedthioridazine 25 mg oral tablet 1 tablet = 25 mg, By Mouth, 3 times a day, # 42 tablet, 1 Refills, Maintenance, 01/28/20 11:41:00 EDT, Tablet, [facility]/pharmacy #[id number], 161, cm, 11/19/19 7:59:00 EDT, Height, 77, kg, 11/13/19 17:52:00 EDT, Dry Weight Start Date: 01/28/20 Stop Date: 02/25/20 Status: OrderedtraZODone 100 mg oral tablet 100 mg, 1, tablet, By Mouth, Daily at bedtime, # 14 tablet, Refills 1, Tot. Refills 1, Maintenance, 01/28/20 11:40:00 EDT, Route to Pharmacy Electronically, [facility]/pharmacy #[id number], 161, cm, 11/19/19 7:59:00 EDT, Height, [...] Range]: Oxygen Saturation [94-100 %] 98 % 97 % 98 % (03/28/20 5:17 AM) (03/27/20 12:23 PM) (03/27/20 8:34 AM) Pulse Rate [55-90 bpm] 65 bpm 99 bpm 74 bpm (03/28/20 5:17 AM) *H* (03/27/20 8:34 AM ) (03/27/20 12:23 PM) Blood Pressure [90-138/55-84 mm 115/62 mm Hg 101/61 mm Hg 109/70 mm Hg Hg] (03/28/20 5:17 AM) (03/27/20 12:23 PM) (03/27/20 8:34 AM) Respiratory Rate [16-30 br/min] 17 br/min 16 br/min 18 br/min (03/28/20 5:17 AM) (03/27/20 12:23 PM) (03/27/20 8:34 AM) Temperature [96.8-100.4 DegF] 97.6 DegF 98.5 DegF 97 .5 DegF (03/28/20 5:17 AM) (03/27/20 12:23 PM) (03/27/20 8:34 AM) Mode of Delivery (Oxygen) Room air Room air Room a ir (03/28/20 5:17 AM) (03/27/20 12:23 PM) (03/27/20 8:34 AM) Blood pressure sites Arm, right Arm, left Arm, left (03/28/20 5:17 AM) (03/27/20 12:23 PM) (03/27/20 8:34 AM) Temperature Route Oral Oral Oral (03/28/20 5:17 AM) (03/28/20 12:00 AM) (03/27/20 12:23 PM) Social History Social History Type Response Smoking Status Current every day smoker entered on: 08/27/16 Sex Female
--- OUTSIDE RECORDS SUMMARY | 2022-06-02 02:29 | XMS_ITS | Continuity of Care Document ---
:1990 Author Organization [facility] Address [address] [place] [address]- Care Team Providers Name Role Phone Not on Staff, PCP Primary Care Physician Unavailable Encounter [facility] Date(s): 02/15/20 - 02/16/[address] [address]- [facility] Encounter Diagnosis Auditory hallucination (Final) - 02/16/20 Discharge Disposition: A-D/C Home Attending Physician: Jonathan Prasad MD Admitting Physician: Jonathan Prasad MD Referring Physician: [...] 02/29/20 8:41:00 EDT, 02/15/20 8:41:00 EDT, Capsule, [facility]/pharmacy #[id number], 161, cm, 11/19/19 7:59:00 EDT, Height,77, [...] 02/25/20 8:00:00 EDT, 01/28/20 11:41:00 EDT, Tablet, [facility]/pharmacy #[id number], 161, cm, 11/19/19 7:59:00 EDT, Height, 77, kg, 11/13/19 17:52:00 EDT, Dry Weight Start Date: 01/28/20 Stop Date: 02/25/20 Status: Orderedpermethrin 5% topical cream 1 application, Topically, Once, # 60 Gm, 0 Refills, Soft Stop, 01/30/20 5:04:00 EDT, Cream, [facility]/pharmacy #[id number], 1 application Topically Once, 161, cm, 11/19/19 7:59:00 EDT, Height, 77, kg, 11/13/19 17:52:00 EDT, Dry Weight Start Date: 01/30/20 Status: Orderedthioridazine 25 mg oral tablet 1 tablet = 25 mg, By Mouth, 3 times a day, # 42 tablet, 1 Refills, Maintenance, 01/28/20 11:41:00 EDT, Tablet, [facility]/pharmacy #[id number], 161, cm, 11/19/19 7:59:00 EDT, Height, 77, kg, 11/13/19 17:52:00 EDT, Dry Weight Start Date: 01/28/20 Stop Date: 02/25/20 Status: OrderedtraZODone 100 mg oral tablet 100 mg, 1, tablet, By Mouth, Daily at bedtime, # 14 tablet, Refills 1, Tot. Refills 1, Maintenance, 01/28/20 11:40:00 EDT, Route to Pharmacy Electronically, [facility]/pharmacy #[id number], 161, cm, 11/19/19 [...] %] 100 % 100 % 100 % (02/16/20 2:15 PM) (02/16/20 9:42 AM) (02/16/20 6:5 1 AM) Pulse Rate [55-90 bpm] 88 bpm 112 bpm 77 bpm (02/16/20 2:15 PM) *H* (02/16/20 6:51 AM) (02/16/20 9:42 AM) Blood Pressure [90-138/55-84 mm 135/98 mm Hg 138/102 mm Hg 113/71 mm Hg Hg] (02/16/20 2:15 PM) (02/16/20 9:42 AM) (02/16/20 6:5 1 AM) Respiratory Rate [16-30 br/min] 18 br/min 20 br/min 19 br/min (02/16/20 2:15 PM) (02/16/20 9:42 AM) (02/16/20 6:5 1 AM) Temperature [96.8-100.4 DegF] 98.8 DegF 98.1 DegF 98 .6 DegF (02/16/20 2:15 PM) (02/16/20 9:42 AM) (02/16/20 6:5 1 AM) Mode of Delivery (Oxygen) Room air Room air Room a ir (02/16/20 2:15 PM) (02/16/20 9:42 AM) (02/16/20 6:5 1 AM) Blood pressure sites Arm, right Arm, right Arm, right (02/16/20 2:15 PM) (02/16/20 9:42 AM) (02/16/20 6:5 1 AM) Temperature Route Oral Oral Oral (02/16/20 2:15 PM) (02/16/20 9:42 AM) (02/16/20 6:5 1 AM) Social History Social History Type Response Smoking Status Current every day smoker entered on: 08/27/16 Sex
--- OUTSIDE RECORDS SUMMARY | 2022-06-02 02:29 | XMS_ITS | Continuity of Care Document ---
:1990 Author Organization [facility] Address Unavailable , Care Team Providers Name Role Phone Not on Staff, PCP Primary Care Physician Unavailable Encounter [facility] [place] Date(s): 07/15/21 - [facility] Attending Physician: Not on Staff, Attending MD Referring Physician: Perla Mendieta CNM Allergies, Adverse Reactions, Alerts No Known [...] 9:48:00 EDT, Route to Pharmacy Electronically, [facility]/pharmacy #[id number], 162, cm, 04/27/20 23:16:00 EDT, Height, 82, kg, 04/21/20 16:02:00 EDT, Dry Weight Start Date: 04/28/20 Status: OrderedchlorproMAZINE 50 mg oral tablet = 50 mg, By Mouth, Every 6 hours, PRN Agitation, # 60 tablet, 0 Refills, Maintenance, 04/28/20 9:48:00 EDT, Tablet, [facility]/pharmacy #[id number], 162, cm, 04/27/20 23:16:00 [...] Refills, Maintenance, 08/04/20 23:54:00 EST, Tablet, [facility]/pharmacy #[id number], Partial fill upon patient [...] 11:40:00 EDT, Route to Pharmacy Electronically, [facility]/pharmacy #[id number], 161, cm, 11/19/19 7:59:00 [...]
--- OUTSIDE RECORDS SUMMARY | 2022-06-02 02:29 | XMS_ITS | Continuity of Care Document ---
:1990 Author Organization [facility] Address [address] [place] [address]- Care Team Providers Name Role Phone Not on Staff, PCP Primary Care Physician Unavailable Encounter [facility] Date(s): 12/31/19 - 12/31/[address] [address]- [facility] Discharge Disposition: A-D/C Home Attending Physician: Andrei Segura MD Admitting Physician: Andrei Segura MD Referring Physician: Not on Staff, Referring [...] Range]: 1 2 Oxygen Saturation [94-100 %] 97 % 99 % (12/31/19 6:07 AM) (12/31/19 1:42 AM) Pulse Rate [55-90 bpm] 68 bpm 92 bpm (12/31/19 6:07 AM) *H* (12/31/19 1:42 AM) Blood Pressure [90-138/55-84 mm Hg] 111/56 mm Hg 102/ 62 mm Hg (12/31/19 6:07 AM) (12/31/19 1:42 AM) Respiratory Rate [16-30 br/min] 16 br/min 18 br/mi n (12/31/19 6:07 AM) (12/31/19 1:42 AM) Temperature [96.8-100.4 DegF] 97.5 DegF 97.3 DegF (12/31/19 6:07 AM) (12/31/19 1:42 AM) Mode of Delivery (Oxygen) Room air Room air (12/31/19 6:07 AM) (12/31/19 1:42 AM) Blood pressure sites Arm, left Arm, left (12/31/19 6:07 AM) (12/31/19 1:42 AM) Temperature Route Oral Oral (12/31/19 6:07 AM) (12/31/19 1:42 AM) Social History Social History Type Response Smoking Status Current every day smoker entered on: 08/27/16 Sex
[2022-06-02 02:50] VITALS: BP 108/76; PULSE 96; RESP 19; TEMP 37; O2SAT 98
[2022-06-02] MEDS: Magnesium Hydrox/Alum Hydrox 30 ML ORAL.SUSP PO (02:50)
[2022-06-02] MEDS: hydrOXYzine HCL 25 MG TABLET PO (02:50)
[2022-06-02] MEDS: LORazepam 1 MG TABLET PO ×3 (02:50→23:51)
[2022-06-02] MEDS: Acetaminophen 325 MG TABLET 650 MG PO ×3 (02:50→23:51)
[2022-06-02] MEDS: traZODone HCL 50 MG TABLET PO ×3 (02:55→23:51)
[2022-06-02 04:37] VITALS: BMI 23.1
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
[2022-06-02] MEDS: Thiamine HCL 100 MG TABLET PO (09:14)
[2022-06-02] MEDS: Multivitamin TABLET 1 TAB PO (09:14)
[2022-06-02 09:31] VITALS: BP 104/70; PULSE 105; RESP 15; TEMP 36.3; O2SAT 98
[2022-06-02 11:30] LABS: HCG Quantitative 4 mIU/mL
--- NOTE | 2022-06-02 11:46 | PM.GYNCN ---
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 she had an ultrasound that did not show an IU, and no adnexal masses. She was admitted today, and a senior planner consultation was placed for the patient to be seen today. a repeat quant HCG has already been done and the level has dropped to 4. Her blood type is B positive. Arrangements were being made for the patient to be seen and examined in consultation. Patient declined to be seen and examined. cc:: CC: Xander Dawson [facility] Past Medical History Medical History EtOH dependence Social History Social History Household Members: Other Household Members Other:: alone Housing: Unknown / Unable to assess Alcohol intake: current Alcohol type: hard liquor Patient Tobacco Use Status: Current everyday Tobacco user Tobacco use type: Cigarette Cigarette Packs Per Day: 1 Cigarettes Per Day: 20.0 Smoked in Last 30 Days: Yes Patient Interested in Nicotine Replacement: Yes (gum and patch) Patient Given Instructions on How to Stop Smoking: Yes Date Education Initiated: 06/02/22 Use of substances other than those prescribed or required for medical reasons: Yes Substance Use Type: Crack/Cocaine and Marijuana Substance Use Frequency: Occasionally Last Used Substance: Unknown Currently Displaying Signs/Symptoms of Drug Intoxication Withdrawal: No Any prior treatment program specific to substance use: Yes (many..11 since 2014) Advance Directives: No Recently lost weight without trying: No Eating poorly because of decreased appetite: No Nutrition Risks: No Nutritional Risk Patient : Yes (Labs are showing evidence susp of miscarriage) : No Poor oral hygiene: No Meds Allergies Allergy/AdvReac Type Severity Reaction Status Date / Time No Known Allergies Allergy Unverified 05/13/20 15:55 [No Known Allergies*] Active Medications: Current Medications Acetaminophen (Acetaminophen 325 Mg Tablet) 650 mg PO Q6H PRN PRN Reason: Headache/Pain Mild Scale (1-3) Last Admin: 06/02/22 02:50 Dose: 650 mg Al Hydroxide/Mg Hydroxide (Magnesium Hydrox/Alum Hydrox 30 Ml Oral.Susp) 30 ml PO Q6H PRN PRN Reason: Heartburn/Nausea Last Admin: 06/02/22 02:50 Dose: 30 ml Hydroxyzine HCl (Hydroxyzine Hcl 25 Mg Tablet) 25 mg PO Q6H PRN PRN Reason: Anxiety Last Admin: 06/02/22 02:50 Dose: 25 mg Lorazepam (Lorazepam 1 Mg Tablet) 1 mg PO Q2H PRN PRN Reason: CIWA 8-11 Lorazepam (Lorazepam 1 Mg Tablet) 2 mg PO Q4H PRN PRN Reason: CIWA 12-15 Lorazepam (Lorazepam 1 Mg Tablet) 3 mg PO Q2H PRN PRN Reason: CIWA > 15. and call MD. Magnesium Hydroxide (Milk Of Magnesia 30 Ml Oral.Susp) 30 ml PO DAILY PRN PRN Reason: Constipation Multivitamins/Vitamin C (Multivitamin Tablet) 1 tab PO DAILY HARJEET Last Admin: 06/02/22 09:14 Dose: 1 tab Thiamine HCl (Thiamine Hcl 100 Mg Tablet) 100 mg PO DAILY HARJEET Last Admin: 06/02/22 09:14 Dose: 100 mg Trazodone HCl (Trazodone Hcl 50 Mg Tablet) 50 mg PO BEDTIME PRN PRN Reason: Insomnia Last Admin: 06/02/22 02:55 Dose: 50 mg [employer] E[employer]EL REPAIRER Physical Exam Vitals Vital signs: Temp Pulse Resp BP Pulse Ox O2 Del Method 97.4 F 105 H 15 104/70 98 06/02/22 09:31 06/02/22 09:31 06/02/22 09:31 06/02/22 09:31 06/02/22 09:31 06/02/22 09:31 BMI result Body Mass Index 23.1 P[employer] 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 She was admitted and a senior planner consultation was placed for the patient to be seen today a repeat quant HCG has already been done and the level has dropped to 4. Her blood type is B positive. Arrangements were being made for the patient to be seen and examined in consultation. Patient declined to be seen and examined. Will recommend that pt have repeat quant HCG in 1-3w, and should be given warning signs of when to seek care, and to follow up in our office.
--- NOTE | 2022-06-02 12:00 | PC.NURSE ---
Patient declined OB appointment.
[2022-06-02] MEDS: LORazepam 1 MG TABLET 2 MG PO ×3 (13:27→21:47)
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
[2022-06-02] MEDS: Nicotine 21 MG PATCH.TD24 TRANSDERMA (17:03)
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
[2022-06-02 21:32] VITALS: BP 132/78; PULSE 116; TEMP 36.4; O2SAT 97
[2022-06-02] MEDS: cloNIDine HCL 0.1 MG TABLET PO (21:46)
[2022-06-02] MEDS: busPIRone HCl 5 MG TABLET 15 MG PO (21:47)
[2022-06-02 23:50] VITALS: BP 113/74; PULSE 112
[2022-06-03 05:00] VITALS: BP 111/80; PULSE 99
[2022-06-03] MEDS: LORazepam 1 MG TABLET 3 MG PO ×2 (05:14→10:54)
[2022-06-03] MEDS: hydrOXYzine HCL 50 MG TABLET PO ×2 (05:14→10:54)
[2022-06-03] MEDS: cloNIDine HCL 0.1 MG TABLET PO ×3 (05:14→22:41)
--- NOTE | 2022-06-03 05:57 | PC.NURSE ---
on rising in AM patient was soaked in sweat and reporting higher levels of anxiety and agitation. tremors noted. CIWA performed. medicated as ordered.
[2022-06-03 06:00] VITALS: BP 99/64; PULSE 65; RESP 16; O2SAT 98
[2022-06-03] MEDS: Multivitamin TABLET 1 TAB PO (09:03)
[2022-06-03] MEDS: busPIRone HCl 5 MG TABLET 15 MG PO ×2 (09:03→20:37)
[2022-06-03] MEDS: Thiamine HCL 100 MG TABLET PO (09:03)
[2022-06-03] MEDS: Folic Acid 1 MG TABLET PO (09:03)
[2022-06-03] MEDS: LORazepam 1 MG TABLET PO ×2 (09:03→15:32)
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
[2022-06-03 10:48] VITALS: BP 109/69; PULSE 105; RESP 18; TEMP 36.3; O2SAT 96
[2022-06-03] MEDS: Ondansetron ODT 4 MG TAB.RAPDIS TRANSLINGU (10:54)
[2022-06-03] MEDS: Acetaminophen 325 MG TABLET 650 MG PO (10:54)
[2022-06-03 10:57] LABS: MANUAL DIFF FLAG NO
[2022-06-03 11:04] LABS: Basophils Percent Auto 0.4 % (0-2); Eosinophils Absolute Auto 0.2 X10*3/uL (0.0-0.4); Eosinophils Percent Auto 3.4 % (0-4); Hematocrit 38.7 % (37.0-47.0); Hemoglobin 13.1 g/dl (12.0-16.0); Imm Gran Abs Auto 0.01 X10*3/uL (0.00-0.03); Imm Gran Pct Auto 0.2 % (0.0-0.4); Lymphocytes Absolute Auto 1.5 X10*3/uL (1.2-4.9); Lymphocytes Percent Auto 29.2 % (20-40); Mean Corpuscular HGB Conc 33.9 g/dl (31.0-35.0); Mean Corpuscular Hemoglobin 30.5 pg (27.0-33.0); Mean Corpuscular Volume 90.2 fL (80.0-98.0); Mean Platelet Volume 11.1 fL (9.4-12.3); Monocytes Absolute Auto 0.3 X10*3/uL (0.1-1.2); Monocytes Percent Auto 6.4 % (2-11); Neutrophils Percent Auto 60.4 % (45-73); Platelet Count 199 X10*3/uL (160-400); Red Blood Count 4.29 X10*6/uL (4.20-5.50); Red Cell Distribution Width 16.2 % (11.0-16.0)
[2022-06-03 11:13] LABS: Estimated Average Glucose 94 mg/dL; Hemoglobin A1c % 4.9 %
[2022-06-03 11:16] LABS: Magnesium 1.7 mg/dL (1.6-2.6)
[2022-06-03 11:34] LABS: Free T4 (Free Thyroxine) 0.83 ng/dL (0.71-1.85); Thyroid Stimulating Hormone 1.74 uIU/mL (0.32-4.0)
[2022-06-03 12:15] LABS: Folate > 20.0 ng/mL (> or = 4.0); Vitamin B12 874 pg/mL (200-900)
[2022-06-03] MEDS: LORazepam 1 MG TABLET 2 MG PO ×2 (14:34→20:36)
[2022-06-03 15:26] VITALS: BP 92/55; PULSE 77; RESP 16; TEMP 37.2; O2SAT 97
[2022-06-03 20:07] VITALS: BP 110/56; PULSE 85; RESP 16; TEMP 36.4; O2SAT 97
[2022-06-03 22:42] VITALS: BP 110/60; PULSE 82
--- NOTE | 2022-06-03 23:24 | PC.NURSE ---
MD Azul notified that PT received 12mg of Ativan total today.
[2022-06-03] MEDS: traZODone HCL 50 MG TABLET PO (23:39)
--- NOTE | 2022-06-04 00:07 | PC.NURSE ---
PT signed a 3 day notice on 05/05/22 at 0003, Marcia forensic social worker and MD Azul notified.
--- NOTE | 2022-06-04 00:18 | PC.NURSE ---
PT signed a 3 Day notice on 06/04/22 at 0003, up on 06/08, MD Azul and Marcia social work manager notified.
[2022-06-04 08:45] VITALS: BP 100/57; PULSE 71; RESP 15; O2SAT 99
[2022-06-04] MEDS: Multivitamin TABLET 1 TAB PO (08:46)
[2022-06-04] MEDS: busPIRone HCl 5 MG TABLET 15 MG PO ×2 (08:46→20:05)
[2022-06-04] MEDS: LORazepam 1 MG TABLET 2 MG PO ×3 (08:47→15:49)
[2022-06-04] MEDS: Folic Acid 1 MG TABLET PO (08:47)
[2022-06-04] MEDS: Thiamine HCL 100 MG TABLET PO (08:47)
[2022-06-04] MEDS: hydrOXYzine HCL 50 MG TABLET PO (12:31)
[2022-06-04 16:00] VITALS: BP 110/77; PULSE 97; RESP 16; TEMP 36.3; O2SAT 100
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
[2022-06-04 19:53] VITALS: BP 100/59; PULSE 80; RESP 16; TEMP 36.6; O2SAT 99
[2022-06-04] MEDS: LORazepam 1 MG TABLET PO ×2 (20:05→22:52)
[2022-06-04] MEDS: traZODone HCL 50 MG TABLET PO ×2 (20:05→22:57)
--- NOTE | 2022-06-04 22:37 | PC.NURSE ---
Pt retracted her 3-day notice.
[2022-06-04] MEDS: Acetaminophen 325 MG TABLET 650 MG PO (22:52)
[2022-06-05] MEDS: hydrOXYzine HCL 50 MG TABLET PO ×4 (00:36→21:13)
[2022-06-05] MEDS: cloNIDine HCL 0.1 MG TABLET PO ×2 (00:36→14:15)
[2022-06-05 08:05] VITALS: BP 105/71; PULSE 78; RESP 16; TEMP 36.3; O2SAT 100
[2022-06-05] MEDS: Multivitamin TABLET 1 TAB PO (08:10)
[2022-06-05] MEDS: Thiamine HCL 100 MG TABLET PO (08:11)
[2022-06-05] MEDS: busPIRone HCl 5 MG TABLET 15 MG PO ×2 (08:11→21:13)
[2022-06-05] MEDS: LORazepam 1 MG TABLET PO ×4 (08:12→21:13)
[2022-06-05] MEDS: Folic Acid 1 MG TABLET PO (08:12)
[2022-06-05] MEDS: Ondansetron ODT 4 MG TAB.RAPDIS TRANSLINGU (14:14)
[2022-06-05] MEDS: Acetaminophen 325 MG TABLET 650 MG PO ×2 (14:15→21:13)
[2022-06-05 14:18] VITALS: BP 109/71
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
[2022-06-05 21:00] VITALS: BP 126/86; PULSE 62; RESP 18; TEMP 36.6; O2SAT 97
[2022-06-05] MEDS: traZODone HCL 50 MG TABLET PO (21:13)
[2022-06-06] MEDS: traZODone HCL 50 MG TABLET PO ×2 (00:29→21:03)
[2022-06-06] MEDS: Ibuprofen 600 MG TABLET PO (00:29)
[2022-06-06 08:30] VITALS: BP 139/75; PULSE 106; RESP 20; TEMP 36.6; O2SAT 100
[2022-06-06] MEDS: Folic Acid 1 MG TABLET PO (08:37)
[2022-06-06] MEDS: Thiamine HCL 100 MG TABLET PO (08:37)
[2022-06-06] MEDS: busPIRone HCl 5 MG TABLET 15 MG PO ×2 (08:38→21:03)
[2022-06-06] MEDS: hydrOXYzine HCL 50 MG TABLET PO ×2 (08:38→21:03)
[2022-06-06] MEDS: cloNIDine HCL 0.1 MG TABLET PO (08:38)
[2022-06-06] MEDS: Multivitamin TABLET 1 TAB PO (08:38)
[2022-06-06] MEDS: LORazepam 1 MG TABLET 2 MG PO (09:54)
[2022-06-06 12:12] VITALS: RESP 16
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
[2022-06-06] MEDS: LORazepam 1 MG TABLET PO ×2 (16:45→21:03)
[2022-06-06 16:47] VITALS: BP 113/71; PULSE 93; RESP 18; O2SAT 99
[2022-06-06 21:15] VITALS: BP 119/76; PULSE 75; RESP 18; TEMP 36.4; O2SAT 95
[2022-06-07 04:03] VITALS: BP 127/60; PULSE 84; RESP 16; TEMP 36.7; O2SAT 98
[2022-06-07] MEDS: hydrOXYzine HCL 50 MG TABLET PO ×2 (04:03→23:46)
[2022-06-07] MEDS: cloNIDine HCL 0.1 MG TABLET PO ×2 (04:03→20:08)
[2022-06-07 09:21] VITALS: BP 92/55; PULSE 70; RESP 14; TEMP 36.6; O2SAT 98
[2022-06-07] MEDS: Thiamine HCL 100 MG TABLET PO (09:34)
[2022-06-07] MEDS: Multivitamin TABLET 1 TAB PO (09:34)
[2022-06-07] MEDS: busPIRone HCl 5 MG TABLET 15 MG PO ×2 (09:34→20:09)
[2022-06-07] MEDS: LORazepam 1 MG TABLET PO ×2 (09:34→20:09)
[2022-06-07] MEDS: Folic Acid 1 MG TABLET PO (09:34)
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
[2022-06-07 16:00] LABS: COVID-19 Test Negative (Negative)
[2022-06-07 18:00] VITALS: BP 109/71; PULSE 81; RESP 16; TEMP 36.4; O2SAT 100
[2022-06-07] MEDS: traZODone HCL 50 MG TABLET PO ×2 (20:08→23:46)
[2022-06-07 21:19] LABS: Appearance Urine Clear; Color Urine Yellow; Glucose Urine UA Negative (Negative); Leukocyte Esterase Urine Negative (Negative); Nitrite Urine Negative (Negative); Specific Gravity - Urine <= 1.005 (1.005-1.025); Urine Blood Negative (Negative); Urine Ketones Negative (Negative); Urine Protein Negative (Neg-Trace)
[2022-06-08] MEDS: cloNIDine HCL 0.1 MG TABLET PO (04:54)
[2022-06-08 06:00] VITALS: BP 124/74; PULSE 82; RESP 16; TEMP 36.6; O2SAT 100
[2022-06-08 08:30] VITALS: BP 112/57; PULSE 99; RESP 18; TEMP 36.6; O2SAT 100
[2022-06-08] MEDS: LORazepam 0.5 MG TABLET PO (08:44)
[2022-06-08] MEDS: busPIRone HCl 5 MG TABLET 15 MG PO (08:44)
[2022-06-08] MEDS: Thiamine HCL 100 MG TABLET PO (08:45)
[2022-06-08] MEDS: Ibuprofen 600 MG TABLET PO (08:45)
[2022-06-08] MEDS: Multivitamin TABLET 1 TAB PO (08:46)
[2022-06-08] MEDS: Folic Acid 1 MG TABLET PO (08:46)
[2022-06-08] MEDS: Ondansetron ODT 4 MG TAB.RAPDIS TRANSLINGU (08:55)
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
== END 2022-06-08 11:35 | disposition home or self-care (01) | DRG 885 ==
PROVIDERS: Clinical Nurse Specialist Psychiatric/Mental Health, Adult; Obstetrics & Gynecology; Physician Assistant; Registered Nurse; Admitting Provider Psychiatry & Neurology Psychiatry; Visit Provider Psychiatry & Neurology Psychiatry
DX: F33.1 Major depressive disorder, recurrent, moderate (principal); F10.239 Alcohol dependence with withdrawal, unspecified; R45.851 Suicidal ideations; F43.10 Post-traumatic stress disorder, unspecified; F17.210 Nicotine dependence, cigarettes, uncomplicated; Z20.822 Contact with and (suspected) exposure to COVID-19; Z91.410 Personal history of adult physical and sexual abuse; Z59.01 Sheltered homelessness; Z71.6 Tobacco abuse counseling; Z79.899 Other long term (current) drug therapy
CPT/HCPCS: 36415; 81003; 82607; 82746; 83036; 83735; 84439; 84443; 84702; 85025; 86850; 86870; 86885; 86900; 86901; 86902; 86905; 86920; 86922; 87635; 90792